=== PATIENT | male | born 1930 | race Hispanic/Latino ===

== ENCOUNTER → 2017-09-06 | Outpatient (CLI) | payer MEDICARE ==
[~2017-09-06] MED LIST: AEC81 PO; AMLO5TAB2 PO; BENA40TA3 PO; CHOL100040 PO; CLOP75TA32 PO; CYAN-35 PO; FERS325 PO; FURO20TA4 PO; FURO20TA6 PO; FURO40TA5 PO; LATA2.5D2 OU; LEVO50 PO; OMEP20CA10 PO; PRAV10TA39 PO; TRAM50TA4 PO; WARF-57 PO; WARF5TAB76 PO; WARF7.5T23 PO
== END | disposition home or self-care (01) ==
LOC: SHCH 08:39
PROVIDERS: ATTEND Internal Medicine Cardiovascular Disease
DX: I35.0 Nonrheumatic aortic (valve) stenosis (principal); R60.9 Edema, unspecified
CPT/HCPCS: 93306

== ENCOUNTER 2017-09-21 09:00 | Inpatient (IN) | payer MEDICARE, OTHER ==
[~2017-09-21] VITALS: Ht 166.4 cm; Wt 58.5 kg
[2017-09-21 09:50] VITALS: BP 128/60
[2017-09-21 10:01] LABS: BASOPHILS % (AUTO) 0.6 % (0.0-5.0); EOSINOPHILS % (AUTO) 3.7 % (0.0-8.0); HEMATOCRIT 24.8 % (42-54); LYMPHOCYTES % (AUTO) 17.2 % (21.0-51.0); MEAN CORPUSCULAR HEMOGLOBIN 31.3 pg (27.0-33.0); MEAN CORPUSCULAR HGB CONC 33.5 g/dL (32.0-36.0); MEAN CORPUSCULAR VOLUME 93.6 fL (79-99); MONOCYTES % (AUTO) 6.8 % (3.0-13.0); NEUTROPHILS % (AUTO) 71.7 % (40.0-77.0); PLATELET COUNT (AUTO) 146 K/uL (130-400); RED BLOOD CELL COUNT(AUTO) 2.65 MIL/uL (4.50-6.20); RED CELL DISTRIBUTION WIDTH 15.7 % (11.0-15.5); WHITE BLOOD COUNT (AUTO) 4.2 K/uL (4.8-10.8)
[2017-09-21 10:03] LABS: APPEARANCE,URINE Clear (CLEAR); BILIRUBIN,URINE Negative (NEGATIVE); COLOR,URINE Yellow (YELLOW); GLUCOSE, URINE (UA) Negative (NEGATIVE); KETONES,URINE Negative (NEGATIVE); LEUKOCYTE ESTERASE ,URINE Small (NEGATIVE); NITRATE,URINE Negative (NEGATIVE); OCCULT BLOOD,URINE Trace (NEGATIVE); PH,URINE 5.5 (5.0-8.0); PROTEIN,URINE POS 1+ (NEGATIVE); UROBILINOGEN,URINE 0.2 mg/dL (0.2-1.0)
[2017-09-21 10:08] LABS: BACTERIA,URINE Rare /HPF (None Seen); RBC,URINE 0-1 /HPF (0-1); SQUAMOUS EPITHELIAL CELL,UR Rare /LPF (0-2); WBC,URINE 0-1 /HPF (0-1)
[2017-09-21 10:08] LABS: CREATININE 2.1 mg/dL (0.5-1.5); POTASSIUM 3.9 mmol/L (3.5-5.1)
[2017-09-21 10:09] LABS: INR 1.81 (0.85-1.15); PARTIAL THROMBOPLASTIN TIME 33.4 SEC (26.3-35.5); PROTHROMBIN TIME 18.8 SEC (9.6-11.6)
[2017-09-21] MEDS ORDERED: FERS325 PO (10:52)
[2017-09-21] MEDS ORDERED: CHOL100040 PO (10:52)
[2017-09-21] MEDS ORDERED: WARF-57 PO (10:52)
[2017-09-21] MEDS ORDERED: LEVO50 PO (10:52)
[2017-09-21] MEDS ORDERED: BENA40TA3 PO (10:52)
[2017-09-21] MEDS ORDERED: FURO40TA5 PO (10:52)
[2017-09-21] MEDS ORDERED: OMEP20CA10 PO (10:52)
[2017-09-24] VITALS (15 sets, daily range): BP systolic 129–178; BP diastolic 50–69
[2017-09-24 06:21] LABS: HEMATOCRIT 25.4 % (42-54)
[2017-09-24 06:33] LABS: INR 1.45 (0.85-1.15); PARTIAL THROMBOPLASTIN TIME 29.7 SEC (26.3-35.5); PROTHROMBIN TIME 15.1 SEC (9.6-11.6)
[2017-09-24] MEDS ORDERED: SODIUM CHLORIDE 0.9% 1000ML 1,000 ML IV SCH ×2 (07:00→13:11)
[2017-09-24] MEDS ORDERED: SODIUM CHLORIDE 0.9% 250 ML IV SCH (07:00)
[2017-09-24] MEDS ORDERED: ASPIRIN 325 MG TABLET ONE (10:29)
[2017-09-24] MEDS ORDERED: ASPIRIN 325MG EC TAB 325 MG TABLET.DR PO SCH (10:30)
[2017-09-24 11:09] LABS: CREATINE KINASE MB 1.7 ng/mL (0.5-3.6); TROPONIN I 0.09 ng/mL (0.00-0.06)
[2017-09-24] MEDS ORDERED: HEPARIN SODIUM 1000UNIT/ML 10ML VIAL ONE (11:57)
[2017-09-24] MEDS ORDERED: NITROGLYCERIN 5 MG/ML 10 ML VIAL IV ONE (11:57)
[2017-09-24] MEDS ORDERED: ISOVUE-370 50ML VIAL IV ONE (11:58)
[2017-09-24] MEDS ORDERED: LIDOCAINE HCL 2% 20ML ONE (11:58)
[2017-09-24] MEDS ORDERED: IOPAMIDOL-370 100 ML VIAL IV ONE (11:58)
[2017-09-24] MEDS ORDERED: MIDAZOLAM HCL 1 MG/ML 2ML VIAL ONE (12:32)
[2017-09-24] MEDS ORDERED: HYDRALAZINE HCL 20 MG/ML VIAL ONE (13:01)
[2017-09-24] MEDS ORDERED: GLUCAGON 1MG KIT 1 MG ML IM PRN (13:15)
[2017-09-24] MEDS ORDERED: NITROGLYCERIN 0.4 MG SL TAB SL PRN (13:15)
[2017-09-24] MEDS ORDERED: DEXTROSE 50%-WATER 50 ML DISP.SYRIN IV PRN (13:15)
[2017-09-25] VITALS (18 sets, daily range): BP systolic 126–164; BP diastolic 45–75
[2017-09-25 04:02] LABS: BASOPHILS % (AUTO) 0.6 % (0.0-5.0); EOSINOPHILS % (AUTO) 1.5 % (0.0-8.0); HEMATOCRIT 24.8 % (42-54); LYMPHOCYTES % (AUTO) 19.1 % (21.0-51.0); MEAN CORPUSCULAR HEMOGLOBIN 30.9 pg (27.0-33.0); MEAN CORPUSCULAR HGB CONC 33.4 g/dL (32.0-36.0); MEAN CORPUSCULAR VOLUME 92.5 fL (79-99); MONOCYTES % (AUTO) 10.7 % (3.0-13.0); NEUTROPHILS % (AUTO) 68.1 % (40.0-77.0); PLATELET COUNT (AUTO) 141 K/uL (130-400); RED BLOOD CELL COUNT(AUTO) 2.68 MIL/uL (4.50-6.20); RED CELL DISTRIBUTION WIDTH 15.3 % (11.0-15.5); WHITE BLOOD COUNT (AUTO) 4.5 K/uL (4.8-10.8)
[2017-09-25 04:11] LABS: INR 1.3 (0.85-1.15); PARTIAL THROMBOPLASTIN TIME 29.7 SEC (26.3-35.5); PROTHROMBIN TIME 13.6 SEC (9.6-11.6)
[2017-09-25 04:19] LABS: CREATININE 2.1 mg/dL (0.5-1.5)
[2017-09-25] MEDS: LEVOTHYROXINE 50 MCG TABLET PO SCH (05:24)
[2017-09-25] MEDS: AMLODIPINE BESYLATE 5 MG TAB PO SCH (08:31)
[2017-09-25] MEDS: FUROSEMIDE 40 MG TABLET PO SCH (08:32)
[2017-09-25] MEDS: LISINOPRIL 40 MG TABLET PO SCH (08:32)
[2017-09-25] MEDS ORDERED: PROPOFOL 1000 MG/100 ML 100 ML IV ONE (12:33)
[2017-09-25] MEDS ORDERED: POTASSIUM CHLORIDE 20 MEQ ERTAB PO SCH (13:00)
[2017-09-25 14:52] LABS: PROTEIN,URINE RANDOM 31.4 mg/dL (0-11.9)
[2017-09-25] MEDS ORDERED: AMLO5TAB2 PO (18:26)
[2017-09-26] VITALS: BP 138/62
[2017-09-26 03:57] VITALS: BP 155/65
[2017-09-26 04:15] LABS: HEMATOCRIT 24.9 % (42-54); MEAN CORPUSCULAR HEMOGLOBIN 32.5 pg (27.0-33.0); MEAN CORPUSCULAR HGB CONC 35.1 g/dL (32.0-36.0); MEAN CORPUSCULAR VOLUME 92.5 fL (79-99); PLATELET COUNT (AUTO) 127 K/uL (130-400); RED BLOOD CELL COUNT(AUTO) 2.69 MIL/uL (4.50-6.20); RED CELL DISTRIBUTION WIDTH 15.5 % (11.0-15.5)
[2017-09-26 04:29] LABS: CREATININE 1.8 mg/dL (0.5-1.5); PHOSPHORUS 3.2 mg/dL (2.5-4.9); POTASSIUM 3.5 mmol/L (3.5-5.1)
[2017-09-26 04:33] LABS: % IRON SATURATION 23.2 % (30-44)
[2017-09-26] MEDS: LEVOTHYROXINE 50 MCG TABLET PO SCH (05:52)
[2017-09-26 07:00] VITALS: BP 127/59
[2017-09-26] MEDS: AMLODIPINE BESYLATE 5 MG TAB PO SCH (08:34)
[2017-09-26] MEDS: FUROSEMIDE 40 MG TABLET PO SCH (08:34)
[2017-09-26] MEDS: LISINOPRIL 40 MG TABLET PO SCH (08:34)
[2017-09-26 08:52] LABS: BASOPHILS % (MANUAL) 1 % (0-2); EOSINOPHILS % (MANUAL) 5 % (1-6); LYMPHOCYTES % (MANUAL) 10 % (22-44); MAN.DIFF COMMENT-IMPRESSION MANUAL DIFFERENTIAL; MONOCYTES % (MANUAL) 10 % (2-9); PLATELET MORPHOLOGY COMMENT SLIGHTLY DECREASED; SEGMENTED NEUTROPHILS % 74 % (40-70)
[2017-09-26 11:00] VITALS: BP 120/57
== END 2017-09-26 13:35 | disposition home or self-care (01) | DRG 287 ==
LOC: DAHIP 09-24 06:00 → EDSTATUS 09-24 09:00 → 2AH 09-24 15:06
PROVIDERS: ADMIT Internal Medicine Cardiovascular Disease; ATTEND Internal Medicine Cardiovascular Disease
PROC: 4A023N8 Measurement of Cardiac Sampling and Pressure, Bilateral, Percutaneous Approach (ICD-10-PCS; 2017-09-24)
PROC: B2111ZZ Fluoroscopy of Multiple Coronary Arteries using Low Osmolar Contrast (ICD-10-PCS; 2017-09-24)
PROC: 0DJ08ZZ Inspection of Upper Intestinal Tract, Via Natural or Artificial Opening Endoscopic (ICD-10-PCS; principal; 2017-09-25)
DX: I25.119 Atherosclerotic heart disease of native coronary artery with unspecified angina pectoris (principal); N17.9 Acute kidney failure, unspecified; I27.20 Pulmonary hypertension, unspecified; I13.0 Hypertensive heart and chronic kidney disease with heart failure and stage 1 through stage 4 chronic kidney disease, or unspecified chronic kidney disease; I50.32 Chronic diastolic (congestive) heart failure; I48.2 Chronic atrial fibrillation; I35.0 Nonrheumatic aortic (valve) stenosis; D64.9 Anemia, unspecified; E78.00 Pure hypercholesterolemia, unspecified; E87.6 Hypokalemia; K21.9 Gastro-esophageal reflux disease without esophagitis; Z87.11 Personal history of peptic ulcer disease; Z83.3 Family history of diabetes mellitus; Z79.01 Long term (current) use of anticoagulants; N18.9 Chronic kidney disease, unspecified; H26.9 Unspecified cataract; K29.50 Unspecified chronic gastritis without bleeding; K29.70 Gastritis, unspecified, without bleeding
CPT/HCPCS: 36415; 71045; 76770; 80048; 81001; 82550; 82553; 82570; 83540; 83550; 83874; 84100; 84156; 84484; 85014; 85018; 85025; 85610; 85730; 93005; 93456; 99152; 99153; C1769; C1894; J0360; J1644; J2250; J2704; J3490; J7030; Q9967

== ENCOUNTER 2017-10-15 08:30 | Inpatient (IN) | payer MEDICARE ==
[~2017-10-15] VITALS: Ht 165.1 cm; Wt 55.0 kg
[~2017-10-15 08:30] MED LIST changes: -AEC81 PO; -BENA40TA3 PO; +BENA40TA9 PO; -CLOP75TA32 PO; -CYAN-35 PO; -FERS325 PO; -FURO20TA4 PO; -FURO20TA6 PO; -LATA2.5D2 OU; -OMEP20CA10 PO; -PRAV10TA39 PO; -TRAM50TA4 PO; -WARF5TAB76 PO; -WARF7.5T23 PO
[2017-10-19 11:20] LABS: BASOPHILS % (AUTO) 0.7 % (0.0-5.0); EOSINOPHILS % (AUTO) 3.8 % (0.0-8.0); HEMATOCRIT 26.2 % (42-54); LYMPHOCYTES % (AUTO) 26.1 % (21.0-51.0); MEAN CORPUSCULAR HEMOGLOBIN 30.5 pg (27.0-33.0); MEAN CORPUSCULAR VOLUME 92.5 fL (79-99); MONOCYTES % (AUTO) 6.5 % (3.0-13.0); NEUTROPHILS % (AUTO) 62.9 % (40.0-77.0); PLATELET COUNT (AUTO) 137 K/uL (130-400); RED BLOOD CELL COUNT(AUTO) 2.83 MIL/uL (4.50-6.20); RED CELL DISTRIBUTION WIDTH 14.3 % (11.0-15.5); WHITE BLOOD COUNT (AUTO) 4.2 K/uL (4.8-10.8)
[2017-10-19] MEDS ORDERED: FERS325 PO (11:29)
[2017-10-19 11:31] LABS: POTASSIUM 4.1 mmol/L (3.5-5.1)
[2017-10-19 11:32] LABS: APPEARANCE,URINE Clear (CLEAR); BILIRUBIN,URINE Negative (NEGATIVE); COLOR,URINE Yellow (YELLOW); GLUCOSE, URINE (UA) Negative (NEGATIVE); KETONES,URINE Negative (NEGATIVE); LEUKOCYTE ESTERASE ,URINE Trace (NEGATIVE); NITRATE,URINE Negative (NEGATIVE); OCCULT BLOOD,URINE Negative (NEGATIVE); PROTEIN,URINE Negative (NEGATIVE); UROBILINOGEN,URINE 0.2 mg/dL (0.2-1.0)
[2017-10-19 12:04] LABS: BACTERIA,URINE Rare /HPF (None Seen); RBC,URINE 0-1 /HPF (0-1); SQUAMOUS EPITHELIAL CELL,UR Rare /HPF (0-2)
[2017-10-19 12:10] VITALS: BP 119/65
[2017-10-19 12:27] LABS: INR 2.39 (0.85-1.15); PARTIAL THROMBOPLASTIN TIME 34.5 SEC (26.3-35.5)
[2017-10-22] VITALS (22 sets, daily range): BP systolic 110–155; BP diastolic 36–77
[2017-10-22] MEDS ORDERED: SODIUM CHLORIDE 0.9% 500ML 500 ML IV SCH (05:00)
[2017-10-22] MEDS ORDERED: SODIUM CHLORIDE 0.9% 1000ML 1,000 ML IV SCH ×2 (06:00→12:18)
[2017-10-22] MEDS ORDERED: ACETYLCYSTEINE 600 MG CAPSULE PO SCH (06:30)
[2017-10-22 06:54] LABS: BASOPHILS % (AUTO) 0.5 % (0.0-5.0); EOSINOPHILS % (AUTO) 4.5 % (0.0-8.0); HEMATOCRIT 24.8 % (42-54); LYMPHOCYTES % (AUTO) 22.2 % (21.0-51.0); MEAN CORPUSCULAR HEMOGLOBIN 31.8 pg (27.0-33.0); MEAN CORPUSCULAR HGB CONC 34.3 g/dL (32.0-36.0); MEAN CORPUSCULAR VOLUME 92.6 fL (79-99); MONOCYTES % (AUTO) 8.9 % (3.0-13.0); NEUTROPHILS % (AUTO) 63.9 % (40.0-77.0); NUCLEATED RED BLOOD CELLS 0.1 % (0.0-0.19); PLATELET COUNT (AUTO) 142 K/uL (130-400); RED BLOOD CELL COUNT(AUTO) 2.67 MIL/uL (4.50-6.20); RED CELL DISTRIBUTION WIDTH 14.2 % (11.0-15.5); WHITE BLOOD COUNT (AUTO) 4.3 K/uL (4.8-10.8)
[2017-10-22 07:04] LABS: INR 1.52 (0.85-1.15); PARTIAL THROMBOPLASTIN TIME 30.7 SEC (26.3-35.5); PROTHROMBIN TIME 15.5 SEC (9.6-11.6)
[2017-10-22 07:07] LABS: CREATININE 2.2 mg/dL (0.5-1.5); POTASSIUM 4.5 mmol/L (3.5-5.1)
[2017-10-22] MEDS ORDERED: HEPARIN SODIUM 1000UNIT/ML 10ML VIAL ONE (10:26)
[2017-10-22] MEDS ORDERED: BIVALIRUDIN 250 MG/VIAL IV ONE (10:26)
[2017-10-22] MEDS ORDERED: LIDOCAINE HCL 2% 20ML ONE (10:27)
[2017-10-22] MEDS ORDERED: MIDAZOLAM HCL 1 MG/ML 2ML VIAL ONE (10:27)
[2017-10-22] MEDS ORDERED: IOPAMIDOL-370 100 ML VIAL IV ONE (10:27)
[2017-10-22] MEDS ORDERED: NITROGLYCERIN 5 MG/ML 10 ML VIAL IV ONE (11:01)
[2017-10-22] MEDS ORDERED: FENTANYL CITRATE PF 50 MCG/1 ML 2ML VIAL ONE (11:12)
[2017-10-22] MEDS ORDERED: ISOVUE-370 50ML VIAL IV ONE (12:01)
[2017-10-22] MEDS ORDERED: ASPIRIN 81 MG EC TAB ONE (12:19)
[2017-10-22] MEDS ORDERED: CLOPIDOGREL BISULFATE 300 MG TAB ONE (12:19)
[2017-10-22] MEDS ORDERED: GLUCAGON 1MG KIT 1 MG ML IM PRN (12:30)
[2017-10-22] MEDS ORDERED: DEXTROSE 50%-WATER 50 ML DISP.SYRIN IV PRN (12:30)
[2017-10-22] MEDS ORDERED: ACETAMINOPHEN-CODEINE 300/30MG TAB PO PRN (12:30)
[2017-10-22] MEDS ORDERED: HYDRALAZINE HCL 20 MG/ML VIAL IV PRN (12:30)
[2017-10-22] MEDS ORDERED: NITROGLYCERIN 0.4 MG SL TAB SL PRN (12:30)
[2017-10-22] MEDS ORDERED: MORPHINE SULFATE 4 MG/1ML SYG ONE (12:37)
[2017-10-22] MEDS ORDERED: NITROGLYCERIN 50 MG/D5% WATER 1 BOT ONE (12:43)
[2017-10-22] MEDS ORDERED: NITROGLYCERIN 50 MG/D5% WATER 250 BOT IV PRN (12:45)
[2017-10-22 15:08] LABS: RETICULOCYTE % (AUTO) 0.6 % (0.42-2.23)
[2017-10-22 15:11] LABS: CREATINE KINASE MB 1.9 ng/mL (0.5-3.6); TROPONIN I 0.05 ng/mL (0.00-0.06)
[2017-10-22] MEDS ORDERED: COMPOUND IV MISC 1 EACH IVSOLN MISC PRN (15:15)
[2017-10-22] MEDS ORDERED: LIDOCAINE HCL-MPF 1% 2ML VIAL IVP PRN (15:15)
[2017-10-22] MEDS ORDERED: POTASSIUM CHLORIDE 20 MEQ ERTAB PO PRN (15:15)
[2017-10-22] MEDS ORDERED: POTASSIUM CHLORIDE 20MEQ/100ML 100 ML IV PRN (15:15)
[2017-10-22] MEDS ORDERED: POTASSIUM CHLORIDE 10% ELIXIR 20 MEQ/15 ML UDCUP PO PRN (15:15)
[2017-10-22 15:27] LABS: % IRON SATURATION 23.7 % (30-44)
[2017-10-22] MEDS: INSULIN HUMULIN R 100 UNIT/ML 3ML SQ SCH ×2 (16:30→20:40)
[2017-10-22] MEDS: IRON SUCROSE COMPLEX 100 MG in SODIUM CHLORIDE 0.9% 50 ML IV SCH (17:10)
[2017-10-23] VITALS (18 sets, daily range): BP systolic 90–136; BP diastolic 36–65
[2017-10-23 04:00] LABS: HEMATOCRIT 22.5 % (42-54); MEAN CORPUSCULAR HEMOGLOBIN 30.1 pg (27.0-33.0); MEAN CORPUSCULAR HGB CONC 32.3 g/dL (32.0-36.0); MEAN CORPUSCULAR VOLUME 92.9 fL (79-99); PLATELET COUNT (AUTO) 128 K/uL (130-400); RED BLOOD CELL COUNT(AUTO) 2.42 MIL/uL (4.50-6.20); RED CELL DISTRIBUTION WIDTH 14.5 % (11.0-15.5); WHITE BLOOD COUNT (AUTO) 4.4 K/uL (4.8-10.8)
[2017-10-23 04:40] LABS: CREATINE KINASE MB 3.9 ng/mL (0.5-3.6); CREATININE 1.9 mg/dL (0.5-1.5); POTASSIUM 3.8 mmol/L (3.5-5.1)
[2017-10-23 04:49] LABS: TROPONIN I 0.74 ng/mL (0.00-0.06)
[2017-10-23] MEDS: INSULIN HUMULIN R 100 UNIT/ML 3ML SQ SCH ×4 (06:05→20:31)
[2017-10-23] MEDS: LEVOTHYROXINE 50 MCG TABLET PO SCH (06:51)
[2017-10-23] MEDS: AMLODIPINE BESYLATE 5 MG TAB PO SCH (09:00)
[2017-10-23] MEDS: BENAZEPRIL HCL 10 MG TABLET PO SCH (09:00)
[2017-10-23] MEDS: IRON SUCROSE COMPLEX 100 MG in SODIUM CHLORIDE 0.9% 50 ML IV SCH (09:26)
[2017-10-23 09:27] LABS: HEMATOCRIT 23.1 % (42-54)
[2017-10-23] MEDS: FAMOTIDINE 20MG TAB 20 MG TAB PO SCH (09:27)
[2017-10-23] MEDS: ASPIRIN 81MG TAB.CHEW PO SCH (09:27)
[2017-10-23] MEDS: CLOPIDOGREL BISULFATE 75 MG TAB PO SCH (09:27)
[2017-10-23] MEDS: FUROSEMIDE 10 MG/ML 2ML VIAL IV SCH ×3 (09:27→23:11)
[2017-10-23 11:39] LABS: CREATINE KINASE MB 3.6 ng/mL (0.5-3.6)
[2017-10-23 11:50] LABS: TROPONIN I 0.9 ng/mL (0.00-0.06)
[2017-10-23] MEDS: ***HM***(Cholecalciferol (Vitamin D3) (Vitamin D3) 1,000 UNIT) PO SCH (12:00)
[2017-10-23] MEDS: FERROUS SULFATE 325 MG TABLET.DR PO SCH (12:19)
[2017-10-24 03:08] VITALS: BP 134/65
[2017-10-24 04:17] LABS: CREATININE 1.9 mg/dL (0.5-1.5); POTASSIUM 3.9 mmol/L (3.5-5.1)
[2017-10-24] MEDS: LEVOTHYROXINE 50 MCG TABLET PO SCH (05:32)
[2017-10-24] MEDS: INSULIN HUMULIN R 100 UNIT/ML 3ML SQ SCH ×2 (05:40→11:30)
[2017-10-24 07:00] VITALS: BP 129/65
[2017-10-24] MEDS: IRON SUCROSE COMPLEX 100 MG in SODIUM CHLORIDE 0.9% 50 ML IV SCH (09:00)
[2017-10-24 11:00] VITALS: BP 127/55
[2017-10-24] MEDS: CLOPIDOGREL BISULFATE 75 MG TAB PO SCH (11:03)
[2017-10-24] MEDS: AMLODIPINE BESYLATE 5 MG TAB PO SCH (11:03)
[2017-10-24] MEDS: ASPIRIN 81MG TAB.CHEW PO SCH (11:03)
[2017-10-24] MEDS: FAMOTIDINE 20MG TAB 20 MG TAB PO SCH (11:03)
[2017-10-24] MEDS: BENAZEPRIL HCL 10 MG TABLET PO SCH (11:04)
[2017-10-24] MEDS: FUROSEMIDE 10 MG/ML 2ML VIAL IV SCH (11:05)
[2017-10-24] MEDS: ***HM***(Cholecalciferol (Vitamin D3) (Vitamin D3) 1,000 UNIT) PO SCH (12:00)
[2017-10-24] MEDS: FERROUS SULFATE 325 MG TABLET.DR PO SCH (12:04)
[2017-10-24] MEDS ORDERED: CLOP75TA32 PO (14:54)
[2017-10-24] MEDS ORDERED: AEC81 PO (14:54)
[2017-10-24] MEDS ORDERED: WARFARIN SODIUM 5 MG TAB PO SCH (16:00)
[2017-10-25] MEDS ORDERED: FUROSEMIDE 40 MG TABLET PO SCH (09:00)
== END 2017-10-24 16:30 | disposition home or self-care (01) | DRG 246 ==
LOC: EDSTATUS 10-19 10:00 → DAHIP 10-22 05:54 → 2BH 10-22 13:39 → 2CH 10-23 15:19
PROVIDERS: ADMIT Internal Medicine; ATTEND Internal Medicine
PROC: 027135Z Dilation of Coronary Artery, Two Arteries with Two Drug-eluting Intraluminal Devices, Percutaneous Approach (ICD-10-PCS; principal; 2017-10-22)
DX: I25.110 Atherosclerotic heart disease of native coronary artery with unstable angina pectoris (principal); I50.33 Acute on chronic diastolic (congestive) heart failure; D68.59 Other primary thrombophilia; D69.6 Thrombocytopenia, unspecified; I27.20 Pulmonary hypertension, unspecified; N18.4 Chronic kidney disease, stage 4 (severe); I49.5 Sick sinus syndrome; I48.2 Chronic atrial fibrillation; I13.0 Hypertensive heart and chronic kidney disease with heart failure and stage 1 through stage 4 chronic kidney disease, or unspecified chronic kidney disease; I35.0 Nonrheumatic aortic (valve) stenosis; D63.8 Anemia in other chronic diseases classified elsewhere; E03.9 Hypothyroidism, unspecified; Z79.01 Long term (current) use of anticoagulants; Z79.02 Long term (current) use of antithrombotics/antiplatelets; Z79.82 Long term (current) use of aspirin; Z83.3 Family history of diabetes mellitus
CPT/HCPCS: 36415; 71045; 80048; 81001; 82550; 82553; 82607; 82728; 82746; 82948; 83874; 83880; 84484; 85014; 85018; 85025; 85027; 85610; 85730; 93005; 93306; 93454; A4606; C1725; C1769; C1887; C1894; C9600; J0583; J1644; J1756; J1940; J2250; J2270; J3010; J3490; J7030; Q9967

== ENCOUNTER → 2017-10-17 | Outpatient (CLI) | payer MEDICARE ==
[~2017-10-17] MED LIST changes: +AEC81 PO; +CLOP75TA32 PO; +CYAN-35 PO; +FERS325 PO; +FURO20TA4 PO; +FURO20TA6 PO; +LATA2.5D2 OU; +OMEP20CA10 PO; +PRAV10TA39 PO; +TRAM50TA4 PO; +WARF5TAB76 PO; +WARF7.5T23 PO
== END | disposition home or self-care (01) ==
LOC: SHCH 12:30
PROVIDERS: ATTEND Internal Medicine Cardiovascular Disease
DX: I87.2 Venous insufficiency (chronic) (peripheral) (principal)
CPT/HCPCS: 93970

== ENCOUNTER 2017-11-19 13:30 | Inpatient (IN) | payer MEDICARE ==
[~2017-11-19] VITALS: Ht 167.6 cm; Wt 62.0 kg
[2017-11-19 08:45] VITALS: BP 122/47
[2017-11-19 08:53] LABS: BASOPHILS % (AUTO) 0.8 % (0.0-5.0); EOSINOPHILS % (AUTO) 4.7 % (0.0-8.0); HEMATOCRIT 26.9 % (42-54); LYMPHOCYTES % (AUTO) 24.5 % (21.0-51.0); MEAN CORPUSCULAR HEMOGLOBIN 31.2 pg (27.0-33.0); MEAN CORPUSCULAR HGB CONC 33.4 g/dL (32.0-36.0); MEAN CORPUSCULAR VOLUME 93.5 fL (79-99); MONOCYTES % (AUTO) 8.5 % (3.0-13.0); NEUTROPHILS % (AUTO) 61.5 % (40.0-77.0); PLATELET COUNT (AUTO) 147 K/uL (130-400); RED BLOOD CELL COUNT(AUTO) 2.88 MIL/uL (4.50-6.20); RED CELL DISTRIBUTION WIDTH 14.5 % (11.0-15.5); WHITE BLOOD COUNT (AUTO) 4.2 K/uL (4.8-10.8)
[2017-11-19 09:02] LABS: INR 1.03 (0.85-1.15); PARTIAL THROMBOPLASTIN TIME 26.4 SEC (26.3-35.5); PROTHROMBIN TIME 10.8 SEC (9.6-11.6)
[2017-11-19 09:06] LABS: ALBUMIN 3.9 g/dL (3.5-5.0); BILIRUBIN,TOTAL 0.8 mg/dL (0.2-1.0); POTASSIUM 4.8 mmol/L (3.5-5.1); TOTAL PROTEIN, SERUM 7.8 g/dL (6.0-8.3)
[2017-11-19 09:15] LABS: HEMOGLOBIN A1C 5.4 % (4.0-6.0)
[~2017-11-19 13:30] MED LIST changes: -CYAN-35 PO; -FURO20TA4 PO; -FURO20TA6 PO; -LATA2.5D2 OU; -OMEP20CA10 PO; -PRAV10TA39 PO; -TRAM50TA4 PO; -WARF-57 PO; -WARF5TAB76 PO; -WARF7.5T23 PO
[2017-11-20] MEDS: CEFUROXIME SODIUM 1.5 GM VIAL IVP SCH (09:45)
[2017-11-21] VITALS (30 sets, daily range): BP systolic 51–168; BP diastolic 27–85
[2017-11-21] MEDS ORDERED: SODIUM CHLORIDE 0.9% 1000ML 1,000 ML IV ONE (07:44)
[2017-11-21] MEDS ORDERED: NITROGLYCERIN 50 MG/D5% WATER 1 BOT ONE (07:51)
[2017-11-21] MEDS ORDERED: EPINEPHRINE 1 MG/ML 30ML VIAL IJ ONE (07:51)
[2017-11-21] MEDS ORDERED: BACITRACIN 50,000 UNIT VIAL ONE (07:57)
[2017-11-21] MEDS ORDERED: OCTYL 2-CYANOACRYLATE 1 EACH TP ONE (07:57)
[2017-11-21] MEDS ORDERED: THROMBIN-JMI 5000 UNIT/VIAL TP ONE (09:06)
[2017-11-21] MEDS ORDERED: DELNIDO FORMULA 2 BAG IV ONE (09:07)
[2017-11-21] MEDS ORDERED: NOREPINEPHRINE BITARTRATE 1 MG/1 ML ML IV ONE ×2 (09:14→09:22)
[2017-11-21] MEDS ORDERED: GLYCOPYRROLATE 0.2 MG/ML 5 ML VIAL ONE (09:22)
[2017-11-21] MEDS ORDERED: ROCURONIUM BROMIDE 10MG/1ML 5ML VL ONE (09:22)
[2017-11-21] MEDS ORDERED: ESMOLOL HCL 10 MG/ML 10 ML VIAL ONE (09:22)
[2017-11-21] MEDS ORDERED: HEPARIN SODIUM 1000UNIT/ML 10ML VIAL ONE (09:22)
[2017-11-21] MEDS ORDERED: MILRINONE-D5W 20 MG/100 ML 100 ML IV ONE (09:22)
[2017-11-21] MEDS ORDERED: PROPOFOL 10 MG/ML 20ML VIAL IV ONE (09:22)
[2017-11-21] MEDS ORDERED: NEOSTIGMINE 5MG/5ML SYR IV ONE (09:22)
[2017-11-21] MEDS ORDERED: EPINEPHRINE 1 MG/ML AMPULE ONE (09:22)
[2017-11-21] MEDS ORDERED: PROTAMINE SULFATE 10 MG/ML 25ML VIAL IV ONE (09:22)
[2017-11-21] MEDS ORDERED: LIDOCAINE PF 2% 5ML ABBOJECT ONE (09:22)
[2017-11-21] MEDS ORDERED: AMINOCAPROIC ACID 250 MG/ML 20 ML VIAL IV ONE (09:22)
[2017-11-21] MEDS ORDERED: MIDAZOLAM HCL 1 MG/ML 5ML VIAL ONE (09:23)
[2017-11-21] MEDS: CEFUROXIME SODIUM 1.5 GM VIAL IVP SCH ×2 (10:00→19:29)
[2017-11-21] MEDS ORDERED: FENTANYL CITRATE PF 50 MCG/1 ML 5ML AMP IV ONE ×3 (10:01→10:02)
[2017-11-21 10:19] LABS: ABG BASE EXCESS -4.6 mmol/L (-2.0-3.0); ABG HCO3 20.2 mmol/L (21.0-28.0); ABG OXYGEN SATURATION 99.2 % (95.0-99.0); ABG PCO2 36 mmHg (35-48)
[2017-11-21 11:06] LABS: ABG HCO3 17.9 mmol/L (21.0-28.0); ABG OXYGEN SATURATION 99.1 % (95.0-99.0); ABG PCO2 30 mmHg (35-48)
[2017-11-21 11:23] LABS: ABG BASE EXCESS -1.9 mmol/L (-2.0-3.0); ABG OXYGEN SATURATION 98.9 % (95.0-99.0); ABG PCO2 34 mmHg (35-48)
[2017-11-21] MEDS ORDERED: SODIUM CHLORIDE 0.9% 500ML 500 ML IV SCH (11:24)
[2017-11-21] MEDS ORDERED: CALCIUM GLUCONATE 1 GM in SODIUM CHLORIDE 0.9% 50 ML IV PRN (11:30)
[2017-11-21] MEDS ORDERED: ALBUMIN (HUMAN) 5% 250 ML IV PRN (11:30)
[2017-11-21] MEDS ORDERED: SODIUM CHLORIDE 0.9% 1000ML 1,000 ML IV SCH (11:30)
[2017-11-21] MEDS ORDERED: AMINOCAPROIC ACID 15,000 MG in SODIUM CHLORIDE 0.9% 250 ML IV SCH (11:30)
[2017-11-21] MEDS ORDERED: MORPHINE SULFATE 4 MG/1ML SYG IV PRN (11:30)
[2017-11-21] MEDS ORDERED: SODIUM CHLORIDE 0.9% 250 ML IV PRN (11:30)
[2017-11-21] MEDS ORDERED: ACETAMINOPHEN 325 MG TAB PO PRN (11:30)
[2017-11-21] MEDS ORDERED: NOREPINEPHRINE 4MG/NS 250ML 250 ML IV PRN (11:30)
[2017-11-21] MEDS ORDERED: EPINEPHRINE 2 MG in SODIUM CHLORIDE 0.9% 250 ML IV PRN (11:30)
[2017-11-21] MEDS ORDERED: SODIUM CHLORIDE 0.9% 10 ML VIAL IVP PRN (11:30)
[2017-11-21] MEDS ORDERED: ACETAMINOPHEN 650 MG SUPPOSITORY RC PRN (11:30)
[2017-11-21] MEDS ORDERED: HYDROCODONE/ACETAMINOPHEN 5/325 MG TAB PO PRN ×2 (11:30)
[2017-11-21] MEDS ORDERED: ONDANSETRON HCL 4 MG/2 ML VIAL IV PRN (11:30)
[2017-11-21] MEDS ORDERED: PROPOFOL 1000 MG/100 ML 100 ML IV PRN (11:30)
[2017-11-21] MEDS ORDERED: SODIUM BICARB 8.4% 50ML SYRINGE IV PRN (11:30)
[2017-11-21] MEDS ORDERED: GLUCAGON 1MG KIT 1 MG ML IM PRN (11:30)
[2017-11-21] MEDS ORDERED: INSULIN REGULAR, HUMAN 3ML 100 UNIT in SODIUM CHLORIDE 0.9% 99 ML IV SCH ×2 (11:30)
[2017-11-21] MEDS ORDERED: POTASSIUM CHLORIDE 20MEQ/100ML 100 ML IV PRN (11:30)
[2017-11-21] MEDS ORDERED: NICARDIPINE HCL 100 MG in SODIUM CHLORIDE 0.9% 100 ML IV PRN (11:30)
[2017-11-21] MEDS ORDERED: MAGNESIUM 2GM PREMIX 50ML 50 ML IV PRN (11:30)
[2017-11-21] MEDS ORDERED: POTASSIUM PHOS 15 mMOL+NS250ML 250 ML IV PRN (11:30)
[2017-11-21] MEDS ORDERED: NITROGLYCERIN 50 MG/D5% WATER 250 BOT IV SCH (11:30)
[2017-11-21] MEDS ORDERED: DEXTROSE 50%-WATER 50 ML DISP.SYRIN IV PRN (11:30)
[2017-11-21] MEDS ORDERED: MORPHINE SULFATE 2 MG/ML 1ML SYG IV PRN (11:30)
[2017-11-21 11:54] LABS: ABG BASE EXCESS -3.7 mmol/L (-2.0-3.0); ABG HCO3 20.6 mmol/L (21.0-28.0); ABG OXYGEN SATURATION 98.8 % (95.0-99.0); ABG PCO2 34 mmHg (35-48)
[2017-11-21] MEDS ORDERED: MANNITOL 25% 50ML VIAL IV ONE (12:00)
[2017-11-21] MEDS ORDERED: ALBUMIN (HUMAN) 25% 50 ML IV ONE (12:00)
[2017-11-21] MEDS ORDERED: SODIUM BICARB 8.4% 50ML SYRINGE IVP ONE (12:00)
[2017-11-21] MEDS ORDERED: CALCIUM CHLORIDE 100 MG/ML 10 ML SYG IVP ONE (12:00)
[2017-11-21] MEDS ORDERED: HEPARIN SODIUM 1000UNIT/ML 10ML VIAL IV ONE (12:00)
[2017-11-21 12:31] LABS: ABG BASE EXCESS -4.8 mmol/L (-2.0-3.0); ABG HCO3 20.2 mmol/L (21.0-28.0); ABG OXYGEN SATURATION 98.8 % (95.0-99.0); ABG PCO2 37 mmHg (35-48)
[2017-11-21 12:44] LABS: HEMATOCRIT 27.1 % (42-54); MEAN CORPUSCULAR HEMOGLOBIN 31.8 pg (27.0-33.0); MEAN CORPUSCULAR HGB CONC 34.4 g/dL (32.0-36.0); MEAN CORPUSCULAR VOLUME 92.3 fL (79-99); RED BLOOD CELL COUNT(AUTO) 2.93 MIL/uL (4.50-6.20); RED CELL DISTRIBUTION WIDTH 14.1 % (11.0-15.5); WHITE BLOOD COUNT (AUTO) 15.9 K/uL (4.8-10.8)
[2017-11-21 12:52] LABS: PLATELET COUNT (AUTO) 87 K/uL (130-400)
[2017-11-21] MEDS ORDERED: ONDANSETRON HCL MDV 20ML 2 MG/ML VIAL IV PRN (12:55)
[2017-11-21 12:57] LABS: CREATININE 1.5 mg/dL (0.5-1.5); MAGNESIUM 2.6 mg/dL (1.80-2.40); PHOSPHORUS 3.5 mg/dL (2.5-4.9)
[2017-11-21] MEDS ORDERED: ROPIVACAINE 0.2% 2MG/ML 100ML VIAL IJ ONE (13:00)
[2017-11-21] MEDS: AMBU PUMP 1 EACH EACH MISC SCH (13:00)
[2017-11-21] MEDS ORDERED: ALBUMIN (HUMAN) 5% 250 ML IV ONE (13:25)
[2017-11-21 18:49] LABS: ABG BASE EXCESS -10.4 mmol/L (-2.0-3.0); ABG HCO3 17.3 mmol/L (21.0-28.0); ABG OXYGEN SATURATION 98.8 % (95.0-99.0); ABG PCO2 45 mmHg (35-48)
[2017-11-21] MEDS ORDERED: SODIUM BICARB 50MEQ 50ML VIAL ONE ×2 (18:49→19:06)
[2017-11-21] MEDS ORDERED: CEFUROXIME 1.5GM+NS 100ML 100 ML IV SCH (19:30)
[2017-11-21 20:06] LABS: ABG BASE EXCESS 0.6 mmol/L (-2.0-3.0); ABG HCO3 26.3 mmol/L (21.0-28.0); ABG OXYGEN SATURATION 98.3 % (95.0-99.0); ABG PCO2 48 mmHg (35-48)
[2017-11-21 21:13] LABS: ABG BASE EXCESS -1.1 mmol/L (-2.0-3.0); ABG HCO3 24.1 mmol/L (21.0-28.0); ABG OXYGEN SATURATION 98.3 % (95.0-99.0); ABG PCO2 42 mmHg (35-48)
[2017-11-21 22:40] LABS: ABG BASE EXCESS 1.2 mmol/L (-2.0-3.0); ABG OXYGEN SATURATION 97.7 % (95.0-99.0); ABG PCO2 42 mmHg (35-48)
[2017-11-22] VITALS (26 sets, daily range): BP systolic 94–158; BP diastolic 45–85
[2017-11-22 05:38] LABS: HEMATOCRIT 25.3 % (42-54); MEAN CORPUSCULAR HEMOGLOBIN 31.1 pg (27.0-33.0); MEAN CORPUSCULAR HGB CONC 33.7 g/dL (32.0-36.0); MEAN CORPUSCULAR VOLUME 92.4 fL (79-99); PLATELET COUNT (AUTO) 61 K/uL (130-400); RED BLOOD CELL COUNT(AUTO) 2.74 MIL/uL (4.50-6.20); RED CELL DISTRIBUTION WIDTH 14.6 % (11.0-15.5); WHITE BLOOD COUNT (AUTO) 10.4 K/uL (4.8-10.8)
[2017-11-22 05:50] LABS: CREATININE 1.8 mg/dL (0.5-1.5); MAGNESIUM 2.3 mg/dL (1.80-2.40); POTASSIUM 4.1 mmol/L (3.5-5.1)
[2017-11-22] MEDS: CEFUROXIME SODIUM 1.5 GM VIAL IVP SCH ×2 (06:11→20:40)
[2017-11-22] MEDS: CLOPIDOGREL BISULFATE 75 MG TAB PO SCH (08:53)
[2017-11-22] MEDS: ASPIRIN 81MG TAB.CHEW PO SCH (08:54)
[2017-11-22] MEDS: AMLODIPINE BESYLATE 5 MG TAB PO SCH (08:54)
[2017-11-22] MEDS: LEVOTHYROXINE 50 MCG TABLET PO SCH ×2 (08:55→09:03)
[2017-11-22] MEDS: PANTOPRAZOLE 40 MG/VIAL IV SCH (08:58)
[2017-11-22] MEDS ORDERED: LEVOTHYROXINE 50 MCG TABLET PO SCH (09:00)
[2017-11-22] MEDS ORDERED: WARF5TAB76 PO (09:11)
[2017-11-22] MEDS ORDERED: WARF7.5T23 PO (09:11)
[2017-11-22] MEDS: FUROSEMIDE 40 MG TABLET PO SCH (09:15)
[2017-11-22] MEDS: AMBU PUMP 1 EACH EACH MISC SCH (12:00)
[2017-11-22 12:51] LABS: LYMPHOCYTES % (MANUAL) 3 % (22-44); MAN.DIFF COMMENT-IMPRESSION MANUAL DIFFERENTIAL; MONOCYTES % (MANUAL) 2 % (2-9); SEGMENTED NEUTROPHILS % 95 % (40-70)
[2017-11-22 12:52] LABS: PLATELET MORPHOLOGY COMMENT DECREASED
[2017-11-23] VITALS (14 sets, daily range): BP systolic 106–150; BP diastolic 48–72
[2017-11-23 03:53] LABS: HEMATOCRIT 22.3 % (42-54); MEAN CORPUSCULAR HEMOGLOBIN 32.4 pg (27.0-33.0); MEAN CORPUSCULAR HGB CONC 34.9 g/dL (32.0-36.0); MEAN CORPUSCULAR VOLUME 92.9 fL (79-99); PLATELET COUNT (AUTO) 41 K/uL (130-400); RED CELL DISTRIBUTION WIDTH 14.4 % (11.0-15.5); WHITE BLOOD COUNT (AUTO) 13.4 K/uL (4.8-10.8)
[2017-11-23 04:04] LABS: CREATININE 2.3 mg/dL (0.5-1.5); POTASSIUM 4.2 mmol/L (3.5-5.1)
[2017-11-23] MEDS: CLOPIDOGREL BISULFATE 75 MG TAB PO SCH (08:34)
[2017-11-23] MEDS: AMLODIPINE BESYLATE 5 MG TAB PO SCH (08:34)
[2017-11-23] MEDS: FUROSEMIDE 40 MG TABLET PO SCH (08:35)
[2017-11-23] MEDS: ASPIRIN 81MG TAB.CHEW PO SCH (08:35)
[2017-11-23] MEDS: PANTOPRAZOLE 40 MG/VIAL IV SCH (09:00)
[2017-11-23] MEDS ORDERED: LORAZEPAM 0.5 MG TABLET PO PRN (09:30)
[2017-11-23] MEDS: AMBU PUMP 1 EACH EACH MISC SCH (12:00)
[2017-11-23] MEDS: FONDAPARINUX SODIUM 2.5 MG/0.5 ML SQ SCH (13:00)
[2017-11-23] MEDS ORDERED: LORAZEPAM 1 MG TABLET ONE (21:27)
[2017-11-24] VITALS (11 sets, daily range): BP systolic 114–138; BP diastolic 58–75
[2017-11-24 04:22] LABS: HEMATOCRIT 22.5 % (42-54); MEAN CORPUSCULAR HGB CONC 33.1 g/dL (32.0-36.0); MEAN CORPUSCULAR VOLUME 93.6 fL (79-99); PLATELET COUNT (AUTO) 31 K/uL (130-400); RED BLOOD CELL COUNT(AUTO) 2.41 MIL/uL (4.50-6.20); RED CELL DISTRIBUTION WIDTH 14.5 % (11.0-15.5); WHITE BLOOD COUNT (AUTO) 12.9 K/uL (4.8-10.8)
[2017-11-24 04:40] LABS: CREATININE 2.8 mg/dL (0.5-1.5); POTASSIUM 4.5 mmol/L (3.5-5.1)
[2017-11-24] MEDS: LEVOTHYROXINE 50 MCG TABLET PO SCH (06:42)
[2017-11-24] MEDS: ASPIRIN 81MG TAB.CHEW PO SCH (09:00)
[2017-11-24] MEDS: PANTOPRAZOLE 40 MG/VIAL IV SCH (09:29)
[2017-11-24] MEDS: FONDAPARINUX SODIUM 2.5 MG/0.5 ML SQ SCH (09:29)
[2017-11-24] MEDS: FUROSEMIDE 40 MG TABLET PO SCH (09:43)
[2017-11-24] MEDS: AMBU PUMP 1 EACH EACH MISC SCH (12:00)
[2017-11-25 03:41] VITALS: BP 128/65
[2017-11-25 04:32] LABS: MEAN CORPUSCULAR VOLUME 94.2 fL (79-99); NUCLEATED RED BLOOD CELLS 0.1 % (0.0-0.19); PLATELET COUNT (AUTO) 32 K/uL (130-400); RED BLOOD CELL COUNT(AUTO) 2.21 MIL/uL (4.50-6.20)
[2017-11-25 04:35] LABS: HEMATOCRIT 20.9 % (42-54)
[2017-11-25 04:40] LABS: BAND NEUTROPHILS % (MANUAL) 3 % (0-2); LYMPHOCYTES % (MANUAL) 12 % (22-44); MAN.DIFF COMMENT-IMPRESSION MANUAL DIFFERENTIAL; MONOCYTES % (MANUAL) 10 % (2-9); SEGMENTED NEUTROPHILS % 75 % (40-70)
[2017-11-25 04:41] LABS: PLATELET MORPHOLOGY COMMENT MARKED DECREASED
[2017-11-25 04:46] LABS: CREATININE 2.7 mg/dL (0.5-1.5); MAGNESIUM 2.5 mg/dL (1.80-2.40); PHOSPHORUS 5.3 mg/dL (2.5-4.9); POTASSIUM 3.9 mmol/L (3.5-5.1)
[2017-11-25] MEDS: LEVOTHYROXINE 50 MCG TABLET PO SCH (06:55)
[2017-11-25 08:08] VITALS: BP 115/65
[2017-11-25] MEDS: FUROSEMIDE 40 MG TABLET PO SCH (08:41)
[2017-11-25] MEDS: FONDAPARINUX SODIUM 2.5 MG/0.5 ML SQ SCH (08:41)
[2017-11-25] MEDS: ASPIRIN 81MG TAB.CHEW PO SCH (08:41)
[2017-11-25] MEDS: PANTOPRAZOLE SODIUM 40 MG TABLET.DR PO SCH (08:41)
[2017-11-25] MEDS: AMBU PUMP 1 EACH EACH MISC SCH (12:00)
[2017-11-25 12:01] VITALS: BP 131/67
[2017-11-25 16:00] VITALS: BP 100/55
[2017-11-25 19:50] VITALS: BP 132/73
[2017-11-25 23:29] VITALS: BP 130/72
[2017-11-26 03:55] VITALS: BP 164/79
[2017-11-26] MEDS: LEVOTHYROXINE 50 MCG TABLET PO SCH (07:07)
[2017-11-26] MEDS: PANTOPRAZOLE SODIUM 40 MG TABLET.DR PO SCH (07:07)
[2017-11-26 07:47] VITALS: BP 139/79
[2017-11-26 08:12] LABS: BASOPHILS % (AUTO) 0.1 % (0.0-5.0); EOSINOPHILS % (AUTO) 0.2 % (0.0-8.0); HEMATOCRIT 23.8 % (42-54); LYMPHOCYTES % (AUTO) 6.9 % (21.0-51.0); MEAN CORPUSCULAR HGB CONC 33.4 g/dL (32.0-36.0); MEAN CORPUSCULAR VOLUME 89.7 fL (79-99); MONOCYTES % (AUTO) 9.2 % (3.0-13.0); NEUTROPHILS % (AUTO) 83.6 % (40.0-77.0); PLATELET COUNT (AUTO) 91 K/uL (130-400); RED BLOOD CELL COUNT(AUTO) 2.65 MIL/uL (4.50-6.20); RED CELL DISTRIBUTION WIDTH 17.2 % (11.0-15.5); WHITE BLOOD COUNT (AUTO) 8.3 K/uL (4.8-10.8)
[2017-11-26 08:25] LABS: ALBUMIN 3.3 g/dL (3.5-5.0); BILIRUBIN,TOTAL 2.2 mg/dL (0.2-1.0); CREATININE 2.3 mg/dL (0.5-1.5); POTASSIUM 3.8 mmol/L (3.5-5.1); TOTAL PROTEIN, SERUM 6.7 g/dL (6.0-8.3)
[2017-11-26 11:24] VITALS: BP 134/77
[2017-11-26] MEDS ORDERED: FUROSEMIDE 20 MG TABLET PO SCH ×2 (12:30→17:00)
[2017-11-26] MEDS: ASPIRIN 81MG TAB.CHEW PO SCH (12:31)
[2017-11-26] MEDS ORDERED: TRAMADOL HCL 50 MG TABLET PO PRN ×2 (13:15)
[2017-11-26 16:00] VITALS: BP 134/72
[2017-11-26] MEDS ORDERED: FURO20TA6 PO (17:44)
[2017-11-26] MEDS ORDERED: TRAM50TA4 PO (17:44)
[2017-11-26] MEDS ORDERED: WARFARIN SODIUM 7.5 MG TAB PO ONE (19:30)
[2017-11-27] MEDS ORDERED: CLOPIDOGREL BISULFATE 75 MG TAB PO SCH (09:00)
[2017-11-27] MEDS ORDERED: WARFARIN SODIUM 5 MG TAB PO SCH (16:00)
[2017-11-28] MEDS ORDERED: WARFARIN SODIUM 7.5 MG TAB PO SCH (16:00)
[2017-11-30] MEDS ORDERED: WARFARIN SODIUM 5 MG TAB PO SCH (16:00)
== END 2017-11-26 20:00 | disposition home or self-care (01) | DRG 220 ==
LOC: EDSTATUS 13:30 → DAHIP 11-21 07:18 → 2CV 11-21 11:21 → 2BH 11-22 12:52
PROVIDERS: ADMIT Thoracic Surgery (Cardiothoracic Vascular Surgery); ATTEND Thoracic Surgery (Cardiothoracic Vascular Surgery)
PROC: 5A1935Z Respiratory Ventilation, Less than 24 Consecutive Hours (ICD-10-PCS; 2017-11-21)
PROC: 30233R1 Transfusion of Nonautologous Platelets into Peripheral Vein, Percutaneous Approach (ICD-10-PCS; 2017-11-21)
PROC: 30233N1 Transfusion of Nonautologous Red Blood Cells into Peripheral Vein, Percutaneous Approach (ICD-10-PCS; 2017-11-21)
PROC: 0BH17EZ Insertion of Endotracheal Airway into Trachea, Via Natural or Artificial Opening (ICD-10-PCS; 2017-11-21)
PROC: 02RF0JZ Replacement of Aortic Valve with Synthetic Substitute, Open Approach (ICD-10-PCS; principal; 2017-11-21 09:00)
PROC: 5A1221Z Performance of Cardiac Output, Continuous (ICD-10-PCS; 2017-11-21 09:00)
DX: I35.2 Nonrheumatic aortic (valve) stenosis with insufficiency (principal); I13.0 Hypertensive heart and chronic kidney disease with heart failure and stage 1 through stage 4 chronic kidney disease, or unspecified chronic kidney disease; E87.0 Hyperosmolality and hypernatremia; E11.22 Type 2 diabetes mellitus with diabetic chronic kidney disease; D69.6 Thrombocytopenia, unspecified; N18.4 Chronic kidney disease, stage 4 (severe); J44.9 Chronic obstructive pulmonary disease, unspecified; D72.0 Genetic anomalies of leukocytes; I27.20 Pulmonary hypertension, unspecified; I48.0 Paroxysmal atrial fibrillation; I50.32 Chronic diastolic (congestive) heart failure; D62 Acute posthemorrhagic anemia; I77.819 Aortic ectasia, unspecified site; I25.10 Atherosclerotic heart disease of native coronary artery without angina pectoris; E03.9 Hypothyroidism, unspecified; I35.1 Nonrheumatic aortic (valve) insufficiency; I48.2 Chronic atrial fibrillation; I49.5 Sick sinus syndrome; Z87.891 Personal history of nicotine dependence; Z79.01 Long term (current) use of anticoagulants; Z79.02 Long term (current) use of antithrombotics/antiplatelets; Z79.82 Long term (current) use of aspirin; Z79.899 Other long term (current) drug therapy; Z95.5 Presence of coronary angioplasty implant and graft; Z83.3 Family history of diabetes mellitus; Z82.49 Family history of ischemic heart disease and other diseases of the circulatory system
CPT/HCPCS: 36415; 36430; 71045; 71046; 76998; 80048; 80053; 82330; 82435; 82803; 82947; 82948; 83036; 83605; 83735; 84100; 84132; 84295; 85018; 85025; 85027; 85347; 85576; 85610; 85730; 86022; 86850; 86900; 86901; 86922; 88305; 88311; 93005; 93318; 93880; 94002; 94010; 94150; 97039; A4218; A7048; C9113; J0171; J0697; J1644; J1652; J1815; J2001; J2150; J2250; J2260; J2704; J2710; J2720; J2795; J3010; J3480; J3490; J7030; J7040; P9016; P9034; P9045; P9047

== ENCOUNTER 2018-01-02 17:25 | Inpatient (IN) | payer MEDICARE ==
[~2018-01-02] VITALS: Ht 167.6 cm; Wt 54.8 kg
[~2018-01-02 17:25] MED LIST changes: -AMLO5TAB2 PO; -BENA40TA9 PO; +FURO20TA6 PO; -FURO40TA5 PO; +TRAM50TA4 PO; +WARF5TAB76 PO; +WARF7.5T23 PO
[2018-01-02 17:59] LABS: EOSINOPHILS % (AUTO) 1.1 % (0.0-8.0); HEMATOCRIT 30.1 % (42-54); LYMPHOCYTES % (AUTO) 31.2 % (21.0-51.0); MEAN CORPUSCULAR HEMOGLOBIN 30.2 pg (27.0-33.0); MEAN CORPUSCULAR HGB CONC 32.9 g/dL (32.0-36.0); MEAN CORPUSCULAR VOLUME 91.6 fL (79-99); NEUTROPHILS % (AUTO) 11.7 % (40.0-77.0); NUCLEATED RED BLOOD CELLS 0.2 % (0.0-0.19); PLATELET COUNT (AUTO) 127 K/uL (130-400); RED BLOOD CELL COUNT(AUTO) 3.28 MIL/uL (4.50-6.20); RED CELL DISTRIBUTION WIDTH 17.4 % (11.0-15.5); WHITE BLOOD COUNT (AUTO) 1.5 K/uL (4.8-10.8)
[2018-01-02 18:06] LABS: CREATININE 1.6 mg/dL (0.5-1.5); POTASSIUM 3.7 mmol/L (3.5-5.1)
[2018-01-02 18:08] LABS: INR 2.56 (0.85-1.15); PARTIAL THROMBOPLASTIN TIME 36.1 SEC (26.3-35.5); PROTHROMBIN TIME 26.4 SEC (9.6-11.6)
[2018-01-02 18:13] LABS: APPEARANCE,URINE Clear (CLEAR); BILIRUBIN,URINE Negative (NEGATIVE); COLOR,URINE Yellow (YELLOW); GLUCOSE, URINE (UA) Negative (NEGATIVE); KETONES,URINE Negative (NEGATIVE); LEUKOCYTE ESTERASE ,URINE Negative (NEGATIVE); NITRATE,URINE Negative (NEGATIVE); OCCULT BLOOD,URINE Negative (NEGATIVE); PH,URINE 6.5 (5.0-8.0); PROTEIN,URINE POS 1+ (NEGATIVE); UROBILINOGEN,URINE 0.2 mg/dL (0.2-1.0)
[2018-01-02 18:21] LABS: ALBUMIN 3.6 g/dL (3.5-5.0); CREATINE KINASE MB 1.3 ng/mL (0.5-3.6); TOTAL PROTEIN, SERUM 7.7 g/dL (6.0-8.3); TROPONIN I 0.07 ng/mL (0.00-0.06)
[2018-01-02 18:24] LABS: BACTERIA,URINE None Seen /HPF (None Seen); RBC,URINE 0-1 /HPF (0-1); SQUAMOUS EPITHELIAL CELL,UR 0-2 /HPF (0-2); WBC,URINE None Seen /HPF (0-1)
[2018-01-02] MEDS ORDERED: CEFTRIAXONE SODIUM 1 GM ONE (18:38)
[2018-01-02] MEDS ORDERED: AZITHROMYCIN 250 MG TABLET PO ONE (18:39)
[2018-01-02] MEDS ORDERED: SODIUM CHLORIDE 0.9% 1000ML 1,000 ML IV ONE (20:19)
[2018-01-02] MEDS ORDERED: ACETAMINOPHEN 325 MG TAB ONE (20:20)
[2018-01-02] MEDS ORDERED: DEXTROSE 50%-WATER 50 ML DISP.SYRIN IV PRN (23:45)
[2018-01-02] MEDS ORDERED: GLUCAGON 1MG KIT 1 MG ML IM PRN (23:45)
[2018-01-02] MEDS ORDERED: ACETAMINOPHEN 325 MG TAB PO PRN (23:45)
[2018-01-02] MEDS ORDERED: ONDANSETRON HCL MDV 20ML 2 MG/ML VIAL IVP PRN (23:45)
[2018-01-02] MEDS ORDERED: ALPRAZOLAM 0.25 MG TABLET PO PRN (23:45)
[2018-01-03] VITALS (7 sets, daily range): BP systolic 121–151; BP diastolic 63–82
[2018-01-03] MEDS: LEVOFLOXACIN 500 MG/D5W 100 ML 100 ML IV SCH ×2 (01:28→21:29)
[2018-01-03 03:57] LABS: HEMATOCRIT 25.8 % (42-54); MEAN CORPUSCULAR HEMOGLOBIN 31.8 pg (27.0-33.0); MEAN CORPUSCULAR HGB CONC 34.7 g/dL (32.0-36.0); MEAN CORPUSCULAR VOLUME 91.8 fL (79-99); NUCLEATED RED BLOOD CELLS 0.1 % (0.0-0.19); PLATELET COUNT (AUTO) 104 K/uL (130-400); RED BLOOD CELL COUNT(AUTO) 2.81 MIL/uL (4.50-6.20); RED CELL DISTRIBUTION WIDTH 17.3 % (11.0-15.5); WHITE BLOOD COUNT (AUTO) 3.9 K/uL (4.8-10.8)
[2018-01-03 04:11] LABS: B-TYPE NATRIURETIC PEPTIDE 2290 pg/mL (0-100); CREATININE 1.5 mg/dL (0.5-1.5); POTASSIUM 3.6 mmol/L (3.5-5.1)
[2018-01-03] MEDS: INSULIN R PO SS1 SQ SCH ×4 (07:30→21:00)
[2018-01-03] MEDS ORDERED: LATA2.5D2 OU (07:52)
[2018-01-03] MEDS ORDERED: PRAV10TA39 PO (07:52)
[2018-01-03] MEDS ORDERED: FURO20TA4 PO (07:52)
[2018-01-03] MEDS ORDERED: CYAN-35 PO (07:52)
[2018-01-03] MEDS ORDERED: FUROSEMIDE 10 MG/ML 2ML VIAL IVP SCH (09:00)
[2018-01-03] MEDS ORDERED: ENOXAPARIN SODIUM 40 MG/0.4 ML SYRINGE SQ SCH (09:00)
[2018-01-03 11:26] LABS: TROPONIN I 0.13 ng/mL (0.00-0.06)
[2018-01-03] MEDS ORDERED: LIDOCAINE HCL-MPF 1% 2ML VIAL IVP PRN (11:45)
[2018-01-03] MEDS ORDERED: POTASSIUM CHLORIDE 10% ELIXIR 20 MEQ/15 ML UDCUP PO PRN (11:45)
[2018-01-03] MEDS ORDERED: POTASSIUM CHLORIDE 20MEQ/100ML 100 ML IV PRN (11:45)
[2018-01-03] MEDS: CLOPIDOGREL BISULFATE 75 MG TAB PO SCH (13:16)
[2018-01-03] MEDS: ASPIRIN 81MG TAB.CHEW PO SCH (13:16)
[2018-01-03] MEDS: POTASSIUM CHLORIDE 20 MEQ ERTAB PO PRN (13:17)
[2018-01-03] MEDS ORDERED: WARFARIN SODIUM 5 MG TAB PO SCH (16:30)
[2018-01-03] MEDS: FUROSEMIDE 10 MG/ML 2ML VIAL IVP SCH (21:28)
[2018-01-04 04:03] VITALS: BP 163/73
[2018-01-04] MEDS: INSULIN R PO SS1 SQ SCH ×4 (06:21→21:00)
[2018-01-04] MEDS: POTASSIUM CHLORIDE 20 MEQ ERTAB PO PRN ×2 (07:03→16:34)
[2018-01-04 07:10] VITALS: BP 157/78
[2018-01-04] MEDS: ASPIRIN 81MG TAB.CHEW PO SCH (09:20)
[2018-01-04] MEDS: CLOPIDOGREL BISULFATE 75 MG TAB PO SCH (09:20)
[2018-01-04] MEDS: FUROSEMIDE 10 MG/ML 2ML VIAL IVP SCH (09:21)
[2018-01-04 11:13] VITALS: BP 167/82
[2018-01-04 11:51] LABS: BASOPHILS % (AUTO) 0.4 % (0.0-5.0); EOSINOPHILS % (AUTO) 2.9 % (0.0-8.0); LYMPHOCYTES % (AUTO) 27.6 % (21.0-51.0); MEAN CORPUSCULAR HEMOGLOBIN 30.6 pg (27.0-33.0); MEAN CORPUSCULAR HGB CONC 33.4 g/dL (32.0-36.0); MEAN CORPUSCULAR VOLUME 91.6 fL (79-99); MONOCYTES % (AUTO) 40.5 % (3.0-13.0); NEUTROPHILS % (AUTO) 28.6 % (40.0-77.0); NUCLEATED RED BLOOD CELLS 0.2 % (0.0-0.19); PLATELET COUNT (AUTO) 108 K/uL (130-400); RED BLOOD CELL COUNT(AUTO) 3.17 MIL/uL (4.50-6.20); RED CELL DISTRIBUTION WIDTH 17.1 % (11.0-15.5); WHITE BLOOD COUNT (AUTO) 3.6 K/uL (4.8-10.8)
[2018-01-04 12:02] LABS: CREATININE 1.5 mg/dL (0.5-1.5); POTASSIUM 3.4 mmol/L (3.5-5.1)
[2018-01-04 12:28] LABS: B-TYPE NATRIURETIC PEPTIDE 999 pg/mL (0-100)
[2018-01-04] MEDS: METOPROLOL TARTRATE 25 MG TAB PO SCH ×2 (12:30→19:48)
[2018-01-04 15:56] VITALS: BP 143/72
[2018-01-04] MEDS ORDERED: WARFARIN SODIUM 5 MG TAB PO SCH (16:00)
[2018-01-04] MEDS: FUROSEMIDE 40 MG TABLET PO SCH (16:31)
[2018-01-04 19:59] VITALS: BP 153/84
[2018-01-04] MEDS: LEVOFLOXACIN 500 MG/D5W 100 ML 100 ML IV SCH (20:50)
[2018-01-05 00:43] VITALS: BP 158/73
[2018-01-05 04:02] LABS: BASOPHILS % (AUTO) 0.5 % (0.0-5.0); EOSINOPHILS % (AUTO) 4.2 % (0.0-8.0); HEMATOCRIT 28.1 % (42-54); LYMPHOCYTES % (AUTO) 22.5 % (21.0-51.0); MEAN CORPUSCULAR HEMOGLOBIN 31.1 pg (27.0-33.0); MEAN CORPUSCULAR VOLUME 91.5 fL (79-99); MONOCYTES % (AUTO) 28.3 % (3.0-13.0); NEUTROPHILS % (AUTO) 44.5 % (40.0-77.0); NUCLEATED RED BLOOD CELLS 0.3 % (0.0-0.19); PLATELET COUNT (AUTO) 110 K/uL (130-400); RED BLOOD CELL COUNT(AUTO) 3.07 MIL/uL (4.50-6.20); RED CELL DISTRIBUTION WIDTH 16.8 % (11.0-15.5); WHITE BLOOD COUNT (AUTO) 3.5 K/uL (4.8-10.8)
[2018-01-05 04:03] VITALS: BP 147/80
[2018-01-05 04:05] LABS: CREATININE 1.6 mg/dL (0.5-1.5); POTASSIUM 3.5 mmol/L (3.5-5.1)
[2018-01-05] MEDS: POTASSIUM CHLORIDE 20 MEQ ERTAB PO PRN ×2 (05:06→16:59)
[2018-01-05] MEDS: INSULIN R PO SS1 SQ SCH ×3 (06:53→16:24)
[2018-01-05 07:47] VITALS: BP 142/70
[2018-01-05] MEDS: CLOPIDOGREL BISULFATE 75 MG TAB PO SCH (08:26)
[2018-01-05] MEDS: ASPIRIN 81MG TAB.CHEW PO SCH (08:26)
[2018-01-05] MEDS: METOPROLOL TARTRATE 25 MG TAB PO SCH (08:27)
[2018-01-05] MEDS: FUROSEMIDE 40 MG TABLET PO SCH ×2 (08:27→16:57)
[2018-01-05 11:00] VITALS: BP 138/66
[2018-01-05 16:00] VITALS: BP 130/73
[2018-01-05] MEDS ORDERED: WARFARIN SODIUM 7.5 MG TAB PO SCH (16:00)
== END 2018-01-05 18:55 | disposition home or self-care (01) | DRG 291 ==
LOC: EDH 17:25 → EDHIP 21:55 → 2AH 01-03 00:15
PROVIDERS: ADMIT Specialist; ATTEND Specialist
DX: I13.0 Hypertensive heart and chronic kidney disease with heart failure and stage 1 through stage 4 chronic kidney disease, or unspecified chronic kidney disease (principal); J18.9 Pneumonia, unspecified organism; I50.43 Acute on chronic combined systolic (congestive) and diastolic (congestive) heart failure; E87.1 Hypo-osmolality and hyponatremia; D61.818 Other pancytopenia; D68.59 Other primary thrombophilia; N18.4 Chronic kidney disease, stage 4 (severe); J90 Pleural effusion, not elsewhere classified; D63.8 Anemia in other chronic diseases classified elsewhere; F41.9 Anxiety disorder, unspecified; I08.1 Rheumatic disorders of both mitral and tricuspid valves; I25.10 Atherosclerotic heart disease of native coronary artery without angina pectoris; I27.29 Other secondary pulmonary hypertension; I48.2 Chronic atrial fibrillation; Z79.01 Long term (current) use of anticoagulants; Z95.5 Presence of coronary angioplasty implant and graft; Z95.2 Presence of prosthetic heart valve; Z95.1 Presence of aortocoronary bypass graft; Z87.11 Personal history of peptic ulcer disease; Z83.3 Family history of diabetes mellitus; Z82.49 Family history of ischemic heart disease and other diseases of the circulatory system
CPT/HCPCS: 36415; 71045; 80048; 80053; 81001; 82550; 82553; 82948; 83605; 83874; 83880; 84484; 85025; 85027; 85060; 85610; 85730; 87040; 87088; 93005; J0696; J1940; J1956; J7030

== ENCOUNTER 2018-05-09 12:21 | Emergency (ER) | payer OTHER ==
[~2018-05-09 12:21] MED LIST changes: +CYAN-35 PO; +FURO20TA4 PO; -FURO20TA6 PO; +LATA2.5D2 OU; +PRAV10TA39 PO; -TRAM50TA4 PO
[2018-05-09] MEDS ORDERED: TETANUS/DIPHTHERIA TOXOID [ADULT] 0.5 ML VIAL IM ONE (13:07)
[2018-05-09 13:29] LABS: CREATININE 1.6 mg/dL (0.5-1.5); POTASSIUM 4.4 mmol/L (3.5-5.1)
[2018-05-09 13:32] LABS: INR 2.34 (0.85-1.15); PARTIAL THROMBOPLASTIN TIME 34.7 SEC (26.3-35.5); PROTHROMBIN TIME 24.2 SEC (9.6-11.6)
[2018-05-09 13:42] LABS: ALBUMIN 3.5 g/dL (3.5-5.0); BILIRUBIN,TOTAL 0.7 mg/dL (0.2-1.0); TOTAL PROTEIN, SERUM 7.7 g/dL (6.0-8.3)
[2018-05-09 14:06] LABS: BASOPHILS % (AUTO) 0.2 % (0.0-5.0); EOSINOPHILS % (AUTO) 0.2 % (0.0-8.0); LYMPHOCYTES % (AUTO) 5.2 % (21.0-51.0); MEAN CORPUSCULAR HGB CONC 32.9 g/dL (32.0-36.0); MEAN CORPUSCULAR VOLUME 91.1 fL (79-99); NEUTROPHILS % (AUTO) 91.4 % (40.0-77.0); PLATELET COUNT (AUTO) 103 K/uL (130-400); RED BLOOD CELL COUNT(AUTO) 3.08 MIL/uL (4.50-6.20); RED CELL DISTRIBUTION WIDTH 14.5 % (11.0-15.5); WHITE BLOOD COUNT (AUTO) 9.6 K/uL (4.8-10.8)
[2018-05-09] MEDS ORDERED: TRAMADOL HCL 50 MG TABLET ONE (14:16)
[2018-05-09] MEDS ORDERED: OCTYL 2-CYANOACRYLATE 1 EACH TP ONE (15:18)
== END 2018-05-09 15:58 | disposition home or self-care (01) ==
LOC: EDH 12:21
DX: S01.21XA Laceration without foreign body of nose, initial encounter (principal); S01.411A Laceration without foreign body of right cheek and temporomandibular area, initial encounter; R79.1 Abnormal coagulation profile; I25.10 Atherosclerotic heart disease of native coronary artery without angina pectoris; E78.5 Hyperlipidemia, unspecified; E07.9 Disorder of thyroid, unspecified; Z95.1 Presence of aortocoronary bypass graft; Z98.890 Other specified postprocedural states; W01.190A Fall on same level from slipping, tripping and stumbling with subsequent striking against furniture, initial encounter; Y93.89 Activity, other specified; Y92.89 Other specified places as the place of occurrence of the external cause; Y99.8 Other external cause status
CPT/HCPCS: 12011; 36415; 70450; 70486; 71045; 72125; 80053; 82550; 84484; 85025; 85610; 85730; 90471; 90714; 93005

== ENCOUNTER → 2018-05-22 | Outpatient (CLI) | payer MEDICARE, OTHER | END | disposition home or self-care (01) | LOC: RAH 13:55 | PROVIDERS: ATTEND Internal Medicine Cardiovascular Disease | DX: R19.09 Other intra-abdominal and pelvic swelling, mass and lump (principal); I12.9 Hypertensive chronic kidney disease with stage 1 through stage 4 chronic kidney disease, or unspecified chronic kidney disease; N18.3 Chronic kidney disease, stage 3 (moderate); I48.2 Chronic atrial fibrillation | CPT/HCPCS: 76882 ==

== ENCOUNTER 2018-08-17 22:21 | Observation (INO) | payer OTHER ==
[~2018-08-17] VITALS: Ht 165.1 cm; Wt 55.7 kg
[2018-08-17 23:03] LABS: CREATININE 1.4 mg/dL (0.5-1.5); POTASSIUM 4.3 mmol/L (3.5-5.1)
[2018-08-17 23:05] LABS: INR 1.99 (0.85-1.15); PARTIAL THROMBOPLASTIN TIME 47.4 SEC (26.3-35.5); PROTHROMBIN TIME 20.6 SEC (9.6-11.6)
[2018-08-17 23:08] LABS: ALBUMIN 3.2 g/dL (3.5-5.0); BASOPHILS % (AUTO) 0.6 % (0.0-5.0); BILIRUBIN,TOTAL 1.1 mg/dL (0.2-1.0); EOSINOPHILS % (AUTO) 2.5 % (0.0-8.0); HEMATOCRIT 27.8 % (42-54); LYMPHOCYTES % (AUTO) 4.9 % (21.0-51.0); MEAN CORPUSCULAR HEMOGLOBIN 29.4 pg (27.0-33.0); MEAN CORPUSCULAR HGB CONC 32.7 g/dL (32.0-36.0); MONOCYTES % (AUTO) 6.2 % (3.0-13.0); NEUTROPHILS % (AUTO) 85.8 % (40.0-77.0); PLATELET COUNT (AUTO) 143 K/uL (130-400); RED BLOOD CELL COUNT(AUTO) 3.09 MIL/uL (4.50-6.20); TOTAL PROTEIN, SERUM 7.8 g/dL (6.0-8.3); WHITE BLOOD COUNT (AUTO) 9.3 K/uL (4.8-10.8)
[2018-08-17 23:09] LABS: ABG BASE EXCESS -2.9 mmol/L (-2.0-3.0); ABG HCO3 21.1 mmol/L (21.0-28.0); ABG OXYGEN SATURATION 98.1 % (95.0-99.0); ABG PCO2 35 mmHg (35-48)
[2018-08-17 23:13] LABS: B-TYPE NATRIURETIC PEPTIDE 1270 pg/mL (0-100)
[2018-08-17] MEDS ORDERED: ASPIRIN 325 MG TABLET ONE (23:37)
[2018-08-17] MEDS ORDERED: FUROSEMIDE 10 MG/ML 2ML VIAL ONE (23:37)
[2018-08-18] MEDS ORDERED: ACETAMINOPHEN 325 MG TAB PO PRN (00:15)
[2018-08-18] MEDS ORDERED: ALBUTEROL SULFATE 0.083% 2.5 MG/3 ML INH IH PRN (00:15)
[2018-08-18] MEDS ORDERED: MORPHINE SULFATE 2 MG/ML 1ML SYG IV PRN (00:15)
[2018-08-18] MEDS ORDERED: ONDANSETRON HCL 4 MG/2 ML VIAL IV PRN (00:15)
[2018-08-18] MEDS ORDERED: NITROGLYCERIN 1GM/1 INCH PACKET TD ONE ×2 (00:37→08:30)
[2018-08-18 01:47] LABS: APPEARANCE,URINE Clear (CLEAR); BILIRUBIN,URINE Negative (NEGATIVE); COLOR,URINE Yellow (YELLOW); GLUCOSE, URINE (UA) Negative (NEGATIVE); KETONES,URINE Negative (NEGATIVE); LEUKOCYTE ESTERASE ,URINE Negative (NEGATIVE); NITRATE,URINE Negative (NEGATIVE); OCCULT BLOOD,URINE Negative (NEGATIVE); PROTEIN,URINE POS 2+ (NEGATIVE); UROBILINOGEN,URINE 0.2 mg/dL (0.2-1.0)
[2018-08-18] MEDS: LEVOTHYROXINE 50 MCG TABLET PO SCH (07:30)
[2018-08-18] MEDS: NITROGLYCERIN 1GM/1 INCH PACKET TD SCH ×2 (08:15→15:30)
[2018-08-18] MEDS ORDERED: FUROSEMIDE 20 MG TABLET ONE (08:29)
[2018-08-18] MEDS ORDERED: CLOPIDOGREL BISULFATE 75 MG TAB ONE (08:30)
[2018-08-18] MEDS ORDERED: LEVOTHYROXINE 25 MCG TABLET ONE (08:30)
[2018-08-18] MEDS: FAMOTIDINE/PF 20 MG/2 ML VIAL IV SCH ×2 (09:00→21:19)
[2018-08-18] MEDS ORDERED: FUROSEMIDE 20 MG TABLET PO SCH (09:00)
[2018-08-18] MEDS ORDERED: ASPIRIN 81 MG EC TAB PO SCH (09:00)
[2018-08-18] MEDS: CLOPIDOGREL BISULFATE 75 MG TAB PO SCH (09:00)
[2018-08-18 09:16] VITALS: BP 152/79
[2018-08-18] MEDS: LATANOPROST 2.5 ML DROPS OU SCH ×2 (10:00→21:00)
[2018-08-18] MEDS ORDERED: LIDOCAINE HCL 1% 20 ML VIAL INJ SCH (10:48)
--- NOTE | 2018-08-18 11:15 | NUR ---
TIMEOUT DONE. PATIENT FOR LEFT THORACENTESIS BY DR. RENO.
--- NOTE | 2018-08-18 11:30 | NUR ---
1.3L PLEURAL FLUID COLLECTED. AWAITING CHEST XRAY. VITAL SIGNS MONITORED. PATIENT DENIES SHORTNESS OF BREATH.
[2018-08-18 12:53] LABS: LIPASE,BODY FLUID 36 U/L; TRIGLYCERIDES,BODY FLUID < 15 mg/dL
--- NOTE | 2018-08-18 13:09 | NUR ---
PAGED [facility] CL[facility] FOR NEW CONSULT. AWAITING MD'S CALLBACK.
--- NOTE | 2018-08-18 13:11 | NUR ---
DR. KRAMER CALLED BACK AND INFORMED HIM OF THE NEW CONSULT FOR ELEVATED TROPONIN AND PLEURAL EFFUSION.
[2018-08-18 13:37] LABS: APPEARANCE BODY FLUID BLOODY (CLEAR); COLOR,BODY FLUID RED (LT YELLOW); SPECIMENTYPE,BODY FLUID PLEURAL; TOTAL VOLUME,BODY FLUID 1350 mL
[2018-08-18 13:38] LABS: BODY FLUID RBC 25125 /cu. mm.; BODY FLUID WBC 107 /cu. mm.
[2018-08-18 13:40] LABS: BF EOSINOPHIL 2 %; BF LYMPHOCYTE 69 %; BF MONOCYTE 11 %
--- NOTE | 2018-08-18 13:55 | NUR ---
ASSISTED PATIENT TO RESTROOM AND BACK TO BED. OBSERVED THAT PATIENT'S LEFT THORACENTESIS SITE LOOKS A BIT PUFFY. PATIENT VOICED THAT SITE FEELS TENDER WHEN PRESSED. GRAPEFRUIT SIZE SWELLING NOTED ON SITE. HAWK JOHNSON IS ALSO IN ROOM TO OBSERVE THIS. INFORMED DR. RENO ABOUT THIS AND MD ORDERED FOR PRESSURE TO BE APPLIED FOR 10-15 MINUTES THEN ORDER CBC AND CXR.
--- NOTE | 2018-08-18 14:10 | NUR ---
PRESSURE APPLIED TO LEFT THORACENTESIS SITE SWELLING ORDERED BY DR. RENO. CXR TAKEN. MD IN ROOM TO ASSESS SITE. MD SAID THAT THERE MIGHT BE SMALL BLEEDING INSIDE BUT POINTS OUT THAT RIGHT SIDE OF THE BACK IS THE SAME THE LEFT SIDE. MD SAID THAT HE DOES NOT SEE A DIFFERENCE FROM BEFORE THORACENTESIS WAS DONE. AWAITING F/U XRAY RESULT.
--- NOTE | 2018-08-18 14:28 | NUR ---
DR. RENO CAME IN TO ASSESS PATIENT'S LEFT THORACENTESIS PUNCTURE SITE. XRAY TAKEN AND REVIEWED. SAID THAT PATIENT HAS A BIT OF TRAPPED LUNG THAT HAPPENS AFTER A LUNG PROCEDURE. PLEURAL EFFUSION LOOKS BETTER COMPARED TO PRE-THORACENTESIS. CBC PENDING.
[2018-08-18 14:55] LABS: BASOPHILS % (AUTO) 0.4 % (0.0-5.0); EOSINOPHILS % (AUTO) 2.5 % (0.0-8.0); HEMATOCRIT 28.5 % (42-54); LYMPHOCYTES % (AUTO) 5.5 % (21.0-51.0); MEAN CORPUSCULAR HEMOGLOBIN 29.3 pg (27.0-33.0); MEAN CORPUSCULAR VOLUME 91.4 fL (79-99); MONOCYTES % (AUTO) 5.3 % (3.0-13.0); NEUTROPHILS % (AUTO) 86.3 % (40.0-77.0); PLATELET COUNT (AUTO) 150 K/uL (130-400); RED BLOOD CELL COUNT(AUTO) 3.12 MIL/uL (4.50-6.20); WHITE BLOOD COUNT (AUTO) 8.8 K/uL (4.8-10.8)
[2018-08-18] MEDS: FUROSEMIDE 10 MG/ML 2ML VIAL IV SCH (15:29)
[2018-08-18] MEDS ORDERED: WARFARIN SODIUM 5 MG TAB PO SCH (16:00)
[2018-08-18 16:28] VITALS: BP 146/66
--- NOTE | 2018-08-18 19:20 | NUR ---
BEDSIDE REPORT HANDED TO FEDERICO JOHNSON. LEFT THORACENTESIS PUNCTURE SITE STILL APPEARS BULGING. PATIENT ONLY COMPLAINS OF DISCOMFORT WHEN AREA IS PRESSED.
[2018-08-18 20:21] VITALS: BP 179/66
[2018-08-18] MEDS ORDERED: SIMVASTATIN 10 MG TABLET PO SCH (21:00)
[2018-08-18] MEDS: OSELTAMIVIR PHOSPHATE 75 MG CAP PO SCH (21:19)
[2018-08-18] MEDS: DOXYCYCLINE HYCLATE 100 MG TABLET PO SCH (21:19)
[2018-08-18 23:45] VITALS: BP 125/80
[2018-08-19] MEDS: NITROGLYCERIN 1GM/1 INCH PACKET TD SCH (01:25)
[2018-08-19] MEDS: FUROSEMIDE 10 MG/ML 2ML VIAL IV SCH (01:26)
[2018-08-19 03:56] VITALS: BP 132/75
[2018-08-19 04:15] LABS: HEMATOCRIT 25.8 % (42-54); MEAN CORPUSCULAR HEMOGLOBIN 29.4 pg (27.0-33.0); MEAN CORPUSCULAR HGB CONC 32.7 g/dL (32.0-36.0); MEAN CORPUSCULAR VOLUME 89.9 fL (79-99); PLATELET COUNT (AUTO) 139 K/uL (130-400); RED BLOOD CELL COUNT(AUTO) 2.87 MIL/uL (4.50-6.20); RED CELL DISTRIBUTION WIDTH 16.1 % (11.0-15.5); WHITE BLOOD COUNT (AUTO) 9.2 K/uL (4.8-10.8)
[2018-08-19 04:25] LABS: BAND NEUTROPHILS % (MANUAL) 3 % (0-2); EOSINOPHILS % (MANUAL) 2 % (1-6); LYMPHOCYTES % (MANUAL) 15 % (22-44); MONOCYTES % (MANUAL) 3 % (2-9); SEGMENTED NEUTROPHILS % 77 % (40-70)
[2018-08-19 04:27] LABS: MAN.DIFF COMMENT-IMPRESSION MANUAL DIFFERENTIAL; PLATELET MORPHOLOGY COMMENT ADEQUATE
[2018-08-19 04:30] LABS: INR 2.17 (0.85-1.15); PARTIAL THROMBOPLASTIN TIME 51.1 SEC (26.3-35.5); PROTHROMBIN TIME 22.4 SEC (9.6-11.6)
[2018-08-19 04:41] LABS: ALBUMIN 2.6 g/dL (3.5-5.0); BILIRUBIN,TOTAL 0.8 mg/dL (0.2-1.0); CREATININE 1.5 mg/dL (0.5-1.5); PHOSPHORUS 3.6 mg/dL (2.5-4.9); POTASSIUM 3.8 mmol/L (3.5-5.1); THYROID STIMULATING HORMONE 3.68 uIU/mL (0.36-3.74); TOTAL PROTEIN, SERUM 6.5 g/dL (6.0-8.3)
[2018-08-19 07:30] VITALS: BP 147/79
[2018-08-19] MEDS: LEVOTHYROXINE 50 MCG TABLET PO SCH (07:30)
--- NOTE | 2018-08-19 07:50 | NUR ---
ASSESSMENT ENCOUNTERED PT IN DRUMMOND'S POSITION, A&OX3, CALM COOPERATIVE AND DOES NOT APPEAR TO BE IN ANY DISTRESS NOR ANY NEURO DEFICITS PRESENT. LEFT FLANK DRESSING DRY AND INTACT, SOFT TO TOUCH WITH NO OOZING OR HEMATOMA PRESENT. PT DENIES PAIN, SOB, NAUSEA. PT IS AMBULATORY, GAIT SLOW BUT STEADY WITH ASSIST. CALL LIGHT WITHIN REACH.
[2018-08-19] MEDS ORDERED: WARF-57 PO (10:13)
[2018-08-19] MEDS ORDERED: FURO20TA6 PO ×2 (10:13→17:02)
[2018-08-19] MEDS ORDERED: CYAN-35 PO (10:13)
[2018-08-19] MEDS ORDERED: SERT25TA5 PO (10:13)
[2018-08-19] MEDS ORDERED: AMLO5TAB9 PO (10:13)
[2018-08-19] MEDS: CLOPIDOGREL BISULFATE 75 MG TAB PO SCH (10:14)
[2018-08-19] MEDS: OSELTAMIVIR PHOSPHATE 75 MG CAP PO SCH (10:14)
[2018-08-19] MEDS: FAMOTIDINE/PF 20 MG/2 ML VIAL IV SCH (10:14)
[2018-08-19] MEDS: DOXYCYCLINE HYCLATE 100 MG TABLET PO SCH (10:14)
[2018-08-19] MEDS ORDERED: LATANOPROST 2.5 ML DROPS OU SCH (11:20)
[2018-08-19 11:27] VITALS: BP 148/78
[2018-08-19] MEDS ORDERED: WARFARIN SODIUM 7.5 MG TAB PO SCH (16:00)
[2018-08-19] MEDS ORDERED: WARFARIN SODIUM 5 MG TAB PO SCH (16:00)
[2018-08-19 16:10] VITALS: BP 177/84
[2018-08-19] MEDS ORDERED: DOXY100T2 PO (16:48)
[2018-08-19] MEDS ORDERED: CLOP75TA14 PO (16:48)
[2018-08-19] MEDS ORDERED: OSEL75 PO (16:48)
--- NOTE | 2018-08-19 17:00 | NUR ---
DISCHARGE INSTRUCTIONS GIVEN, PIV REMOVED AND INTACT, DISCHARGED HOME TO FAMILY VEHICLE VIA WHEELCHAIR.
[2018-08-19] MEDS ORDERED: AMLODIPINE BESYLATE 5 MG TAB PO ONE (17:07)
== END 2018-08-19 18:13 | disposition home or self-care (01) ==
LOC: EDH 22:21 → EDHIP 08-18 00:05 → 2DH 08-18 09:29
PROVIDERS: ADMIT Hospitalist; ATTEND Hospitalist
DX: I13.0 Hypertensive heart and chronic kidney disease with heart failure and stage 1 through stage 4 chronic kidney disease, or unspecified chronic kidney disease (principal); J91.8 Pleural effusion in other conditions classified elsewhere; B34.9 Viral infection, unspecified; D64.9 Anemia, unspecified; D68.69 Other thrombophilia; E03.9 Hypothyroidism, unspecified; E78.5 Hyperlipidemia, unspecified; N18.3 Chronic kidney disease, stage 3 (moderate); I25.10 Atherosclerotic heart disease of native coronary artery without angina pectoris; I35.0 Nonrheumatic aortic (valve) stenosis; I48.2 Chronic atrial fibrillation; I50.33 Acute on chronic diastolic (congestive) heart failure; J98.11 Atelectasis; Z95.1 Presence of aortocoronary bypass graft; Z95.3 Presence of xenogenic heart valve; Z95.5 Presence of coronary angioplasty implant and graft; Z79.01 Long term (current) use of anticoagulants; Z79.82 Long term (current) use of aspirin; Z79.890 Hormone replacement therapy; Z79.899 Other long term (current) drug therapy
CPT/HCPCS: 36415 ×3; 36600; 71045 ×4; 80053 ×2; 81003; 82803; 82945; 83605 ×2; 83615 ×2; 83690; 83735; 83880; 83986; 84100; 84157; 84443; 84478; 84484 ×2; 85025 ×3; 85610 ×2; 85730 ×2; 87071; 87116; 87205; 87206; 88108; 88305; 89051; 93005; 93306; 94664; 96374; 96375; 96376; 99284; C1729; G0378 ×42; J1940 ×3; J3490 ×2

== ENCOUNTER 2018-11-06 11:56 | Emergency (ER) | payer OTHER ==
[~2018-11-06 11:56] MED LIST changes: -AEC81 PO; +AMLO5TAB9 PO; +CLOP75TA14 PO; -CLOP75TA32 PO; +DOXY100T2 PO; -FURO20TA4 PO; +FURO20TA6 PO; -LATA2.5D2 OU; +OSEL75 PO; +SERT25TA5 PO; +WARF-57 PO; -WARF5TAB76 PO; -WARF7.5T23 PO
[2018-11-06 12:28] LABS: BASOPHILS % (AUTO) 0.3 % (0.0-5.0); EOSINOPHILS % (AUTO) 0.8 % (0.0-8.0); HEMATOCRIT 28.1 % (42-54); LYMPHOCYTES % (AUTO) 8.8 % (21.0-51.0); MEAN CORPUSCULAR HEMOGLOBIN 30.6 pg (27.0-33.0); MEAN CORPUSCULAR HGB CONC 32.4 g/dL (32.0-36.0); MEAN CORPUSCULAR VOLUME 94.4 fL (79-99); MONOCYTES % (AUTO) 7.4 % (3.0-13.0); NEUTROPHILS % (AUTO) 82.7 % (40.0-77.0); PLATELET COUNT (AUTO) 149 K/uL (130-400); RED BLOOD CELL COUNT(AUTO) 2.98 MIL/uL (4.50-6.20); RED CELL DISTRIBUTION WIDTH 17.5 % (11.0-15.5); WHITE BLOOD COUNT (AUTO) 10.9 K/uL (4.8-10.8)
[2018-11-06 12:45] LABS: CREATININE 1.4 mg/dL (0.5-1.5); POTASSIUM 3.4 mmol/L (3.5-5.1)
[2018-11-06 12:46] LABS: INR 1.95 (0.85-1.15); PARTIAL THROMBOPLASTIN TIME 45.5 SEC (26.3-35.5); PROTHROMBIN TIME 20.2 SEC (9.6-11.6)
[2018-11-06 12:55] LABS: ALBUMIN 3.3 g/dL (3.5-5.0); BILIRUBIN,TOTAL 0.5 mg/dL (0.2-1.0); TOTAL PROTEIN, SERUM 8.8 g/dL (6.0-8.3)
[2018-11-06] MEDS ORDERED: VANCOMYCIN 1GM+NS 250ML 250 ML IV ONE (13:25)
[2018-11-06 13:27] LABS: B-TYPE NATRIURETIC PEPTIDE 1200 pg/mL (0-100)
[2018-11-06] MEDS ORDERED: FUROSEMIDE 10 MG/ML 2ML VIAL ONE (18:57)
== END 2018-11-06 19:59 | disposition home or self-care (01) ==
LOC: EDH 11:56
DX: J90 Pleural effusion, not elsewhere classified (principal); L02.214 Cutaneous abscess of groin; I25.810 Atherosclerosis of coronary artery bypass graft(s) without angina pectoris; I50.9 Heart failure, unspecified; E78.5 Hyperlipidemia, unspecified; E07.9 Disorder of thyroid, unspecified; Z95.2 Presence of prosthetic heart valve
CPT/HCPCS: 36415; 71045; 74176; 76882; 80053; 82550; 83874; 83880; 84484; 85025; 85610; 85730; 93005; 96374; 99285; J1940; J3370

== ENCOUNTER 2018-11-11 14:30 | Inpatient (IN) | payer OTHER ==
[~2018-11-11] VITALS: Ht 165.1 cm; Wt 53.4 kg
[2018-11-11 14:57] LABS: BASOPHILS % (AUTO) 0.4 % (0.0-5.0); HEMATOCRIT 28.8 % (42-54); LYMPHOCYTES % (AUTO) 9.6 % (21.0-51.0); MEAN CORPUSCULAR HEMOGLOBIN 31.2 pg (27.0-33.0); MEAN CORPUSCULAR HGB CONC 32.8 g/dL (32.0-36.0); MEAN CORPUSCULAR VOLUME 95.2 fL (79-99); MONOCYTES % (AUTO) 6.1 % (3.0-13.0); NEUTROPHILS % (AUTO) 82.9 % (40.0-77.0); PLATELET COUNT (AUTO) 170 K/uL (130-400); RED BLOOD CELL COUNT(AUTO) 3.02 MIL/uL (4.50-6.20); RED CELL DISTRIBUTION WIDTH 17.1 % (11.0-15.5); WHITE BLOOD COUNT (AUTO) 8.9 K/uL (4.8-10.8)
[2018-11-11 15:08] LABS: CREATININE 1.5 mg/dL (0.5-1.5)
[2018-11-11 15:16] LABS: ALBUMIN 3.2 g/dL (3.5-5.0); BILIRUBIN,TOTAL 0.6 mg/dL (0.2-1.0); TOTAL PROTEIN, SERUM 7.9 g/dL (6.0-8.3)
[2018-11-11 16:08] LABS: INR 2.23 (0.85-1.15); PROTHROMBIN TIME 23.1 SEC (9.6-11.6)
[2018-11-11 16:17] LABS: CRP QUANTITATIVE 15.8 mg/L (0.00-9.0)
[2018-11-11 16:27] LABS: B-TYPE NATRIURETIC PEPTIDE 1290 pg/mL (0-100)
[2018-11-11 17:05] LABS: ERYTHROCYTE SEDIMENTATION RATE 73 MM/HR (0-20)
[2018-11-11 17:38] LABS: APPEARANCE,URINE Clear (CLEAR); BILIRUBIN,URINE Negative (NEGATIVE); COLOR,URINE Yellow (YELLOW); GLUCOSE, URINE (UA) Negative (NEGATIVE); KETONES,URINE Negative (NEGATIVE); LEUKOCYTE ESTERASE ,URINE Negative (NEGATIVE); NITRATE,URINE Negative (NEGATIVE); OCCULT BLOOD,URINE Negative (NEGATIVE); PROTEIN,URINE POS 1+ mg/dL (NEGATIVE); UROBILINOGEN,URINE 0.2 mg/dL (0.2-1.0)
[2018-11-11 18:04] LABS: RBC,URINE 0-1 /HPF (0-1)
[2018-11-11 18:05] LABS: BACTERIA,URINE Rare /HPF (None Seen); SQUAMOUS EPITHELIAL CELL,UR Rare /HPF (0-2)
[2018-11-11 18:06] LABS: HYALINE CASTS, URINE 0-1 /LPF (0-1 /LPF)
[2018-11-11] MEDS ORDERED: NITROGLYCERIN 0.4 MG SL TAB SL PRN (19:00)
[2018-11-11] MEDS ORDERED: ONDANSETRON HCL 4 MG/2 ML VIAL IV PRN (19:00)
[2018-11-11] MEDS ORDERED: ACETAMINOPHEN 325 MG TAB PO PRN ×2 (19:00)
[2018-11-11 20:35] VITALS: BP 155/78
[2018-11-11 20:52] LABS: MAGNESIUM 2.2 mg/dL (1.80-2.40); TROPONIN I 0.13 ng/mL (0.00-0.06)
[2018-11-11] MEDS ORDERED: METO5TAB2 PO (21:42)
[2018-11-11] MEDS ORDERED: LEVO75 PO (21:42)
[2018-11-11] MEDS ORDERED: LACTULOSE 20 GM/30 ML UDCUP PO PRN (21:45)
[2018-11-11] MEDS: FAMOTIDINE 20MG TAB 20 MG TAB PO SCH (22:35)
[2018-11-11 23:15] VITALS: BP 140/79
--- NOTE | 2018-11-12 03:55 | NUR ---
STATUS Pt awake,alert,states he could not sleep well.Denies pain or discomfort.Rt groin open wound,culture sent for aerobic and unaerobic.Pending surgical and pulmo consult in am.Tele a flutter 80's.
[2018-11-12 03:58] VITALS: BP 151/77
[2018-11-12 05:21] LABS: BASOPHILS % (AUTO) 0.4 % (0.0-5.0); EOSINOPHILS % (AUTO) 1.6 % (0.0-8.0); HEMATOCRIT 27.8 % (42-54); LYMPHOCYTES % (AUTO) 8.8 % (21.0-51.0); MEAN CORPUSCULAR HEMOGLOBIN 30.6 pg (27.0-33.0); MEAN CORPUSCULAR HGB CONC 32.5 g/dL (32.0-36.0); MEAN CORPUSCULAR VOLUME 94.1 fL (79-99); MONOCYTES % (AUTO) 6.3 % (3.0-13.0); NEUTROPHILS % (AUTO) 82.9 % (40.0-77.0); NUCLEATED RED BLOOD CELLS 0.1 % (0.0-0.19); PLATELET COUNT (AUTO) 184 K/uL (130-400); RED BLOOD CELL COUNT(AUTO) 2.96 MIL/uL (4.50-6.20); RED CELL DISTRIBUTION WIDTH 17.5 % (11.0-15.5); WHITE BLOOD COUNT (AUTO) 10.4 K/uL (4.8-10.8)
[2018-11-12 05:32] LABS: INR 2.16 (0.85-1.15); PARTIAL THROMBOPLASTIN TIME 43.1 SEC (26.3-35.5); PROTHROMBIN TIME 22.3 SEC (9.6-11.6)
[2018-11-12 05:38] LABS: ALBUMIN 3.1 g/dL (3.5-5.0); BILIRUBIN,TOTAL 0.7 mg/dL (0.2-1.0); CREATININE 1.4 mg/dL (0.5-1.5); POTASSIUM 4.2 mmol/L (3.5-5.1); TOTAL PROTEIN, SERUM 7.7 g/dL (6.0-8.3)
[2018-11-12] MEDS: LEVOTHYROXINE 75 MCG TABLET PO SCH (06:43)
[2018-11-12] MEDS: METOCLOPRAMIDE 5 MG TABLET PO SCH ×3 (06:45→17:10)
[2018-11-12 08:00] VITALS: BP 132/69
[2018-11-12] MEDS ORDERED: ENOXAPARIN SODIUM 30 MG/0.3 ML SQ SCH (09:00)
[2018-11-12] MEDS: Cholecalciferol (Vitamin D3) (Vitamin D3) 1,000 UNIT PO SCH (09:00)
[2018-11-12] MEDS: FAMOTIDINE 20MG TAB 20 MG TAB PO SCH ×2 (09:38→21:02)
[2018-11-12] MEDS: AMLODIPINE BESYLATE 5 MG TAB PO SCH (09:38)
[2018-11-12] MEDS: SERTRALINE HCL 50 MG TABLET PO SCH (09:42)
[2018-11-12] MEDS: FUROSEMIDE 20 MG TABLET PO SCH ×2 (09:43→21:02)
[2018-11-12 12:00] VITALS: BP 145/85
[2018-11-12] MEDS: CYANOCOBALAMIN 1000 MCG PO SCH (12:00)
[2018-11-12] MEDS: FERROUS SULFATE 325 MG TABLET.DR PO SCH (12:29)
--- NOTE | 2018-11-12 14:30 | NUR ---
Nutrition Intervention: Nutrition consult for BMI 19.4, thin appearing. Pt. admitted with Dx of Right groin hematoma, Poss. Left Lung Mass. Pt. reports UBW was 123# back in August. Pt. has lost 7#(6% of UBW) in less than 3 months due to decreased appetite. Pt. on Heart Healthy diet with good p.o. intake, as per pt./family. Labs reviewed(Alb 3.1). Pt. reports was drinking Ensure supp. at home. Spoke with pt. regarding nutritional supplementation with Ensure and pt. agreed to try; stated would like nut. supp. to be sent with every meal. LBM: 11/11/18. SR-16, right groin open wound. BMI: 19.4, underweight for age. Pt. and family educated on Coumadin Food-Drug interaction with Vit K foods and provided with education material. Pt. and family verbalized understanding. Recommendations: 1) Continue current diet. 2) Rec. Vanilla Ensure TID with meals. 3) Coumadin Food-Drug interaction with Vit K foods education given to pt. and family. 4) Continue to monitor pt's nutritional status. 5) Consult RD as nutrition concerns arise. Addendum: 11/12/18 at [address] Amended: Links added.
--- NOTE | 2018-11-12 15:38 | NUR ---
DCP CM met with pt discussed dc plans. Pt id independent prior to admission, lives at home with spouse, daughter lives close by. Denies any equipments/services. Pt feels safe to go back home, spouse and daughter able to assist with transportation and needs as necessary. Dc plan to home once stable. CM to cont to follow up.
[2018-11-12 16:00] VITALS: BP 127/70
[2018-11-12] MEDS: WARFARIN SODIUM 5 MG TAB PO SCH (17:11)
[2018-11-12 19:46] VITALS: BP 130/73
[2018-11-12] MEDS: Pravastatin Sodium 10 MG PO SCH (21:00)
[2018-11-13] VITALS: BP 137/79
[2018-11-13 04:16] VITALS: BP 124/71
[2018-11-13 05:08] LABS: BASOPHILS % (AUTO) 0.2 % (0.0-5.0); EOSINOPHILS % (AUTO) 1.6 % (0.0-8.0); HEMATOCRIT 25.9 % (42-54); LYMPHOCYTES % (AUTO) 9.1 % (21.0-51.0); MEAN CORPUSCULAR HEMOGLOBIN 31.9 pg (27.0-33.0); MEAN CORPUSCULAR HGB CONC 33.7 g/dL (32.0-36.0); MEAN CORPUSCULAR VOLUME 94.7 fL (79-99); MONOCYTES % (AUTO) 6.5 % (3.0-13.0); NEUTROPHILS % (AUTO) 82.6 % (40.0-77.0); PLATELET COUNT (AUTO) 151 K/uL (130-400); RED BLOOD CELL COUNT(AUTO) 2.74 MIL/uL (4.50-6.20); RED CELL DISTRIBUTION WIDTH 17.1 % (11.0-15.5); WHITE BLOOD COUNT (AUTO) 8.9 K/uL (4.8-10.8)
[2018-11-13 05:21] LABS: INR 2.21 (0.85-1.15); PARTIAL THROMBOPLASTIN TIME 44.6 SEC (26.3-35.5); PROTHROMBIN TIME 22.8 SEC (9.6-11.6)
[2018-11-13 05:25] LABS: CREATININE 1.4 mg/dL (0.5-1.5); POTASSIUM 4.2 mmol/L (3.5-5.1)
[2018-11-13] MEDS: LEVOTHYROXINE 75 MCG TABLET PO SCH (06:27)
[2018-11-13] MEDS: METOCLOPRAMIDE 5 MG TABLET PO SCH ×3 (06:28→17:44)
[2018-11-13 07:30] VITALS: BP 142/89
[2018-11-13] MEDS: FUROSEMIDE 20 MG TABLET PO SCH ×2 (08:40→21:43)
[2018-11-13] MEDS: AMLODIPINE BESYLATE 5 MG TAB PO SCH (08:40)
[2018-11-13] MEDS: SERTRALINE HCL 50 MG TABLET PO SCH (08:41)
[2018-11-13] MEDS: FAMOTIDINE 20MG TAB 20 MG TAB PO SCH ×2 (08:41→21:41)
[2018-11-13] MEDS: Cholecalciferol (Vitamin D3) (Vitamin D3) 1,000 UNIT PO SCH (09:00)
[2018-11-13 11:00] VITALS: BP 95/44
[2018-11-13] MEDS: CYANOCOBALAMIN 1000 MCG PO SCH (12:00)
[2018-11-13] MEDS: FERROUS SULFATE 325 MG TABLET.DR PO SCH (12:00)
--- NOTE | 2018-11-13 12:51 | NUR ---
was able to get hold of the woundcare and notified them that there is a wound care consult and nobody has come to see the patient yet. they verbalized that they will see the patient in the afternoon.
[2018-11-13 16:00] VITALS: BP 102/55
--- NOTE | 2018-11-13 17:14 | NUR ---
[facility] CONSULT PATIENT ASSESSED ORDERED: PATIENT PRESENTS WITH A RT GROIN NON HEALING SURGICAL WOUND; [facility] RECOMMENDATIONS SUBMITTED. Addendum: 11/13/18 at 1715 by LARISSA BARRAGAN LVN LVN W Amended: Links added.
[2018-11-13] MEDS: WARFARIN SODIUM 5 MG TAB PO SCH (17:45)
[2018-11-13 20:00] VITALS: BP 103/48
[2018-11-13] MEDS: Pravastatin Sodium 10 MG PO SCH (21:00)
[2018-11-13] MEDS ORDERED: HYDROXYZINE HCL 25 MG TABLET PO PRN (22:15)
[2018-11-14] VITALS: BP 133/70
[2018-11-14 04:00] VITALS: BP 126/59
[2018-11-14 04:31] LABS: INR 2.14 (0.85-1.15); PARTIAL THROMBOPLASTIN TIME 42.9 SEC (26.3-35.5); PROTHROMBIN TIME 22.1 SEC (9.6-11.6)
[2018-11-14] MEDS: LEVOTHYROXINE 75 MCG TABLET PO SCH (06:31)
[2018-11-14] MEDS: METOCLOPRAMIDE 5 MG TABLET PO SCH ×3 (06:32→16:01)
[2018-11-14 07:51] VITALS: BP 140/60
[2018-11-14] MEDS: FAMOTIDINE 20MG TAB 20 MG TAB PO SCH ×2 (08:20→20:54)
[2018-11-14] MEDS: AMLODIPINE BESYLATE 5 MG TAB PO SCH (08:20)
[2018-11-14] MEDS: FUROSEMIDE 20 MG TABLET PO SCH ×2 (08:21→20:54)
[2018-11-14] MEDS: LEVOFLOXACIN 250 MG/D5W 50ML 50 ML IV SCH (08:21)
[2018-11-14] MEDS: SERTRALINE HCL 50 MG TABLET PO SCH (08:21)
[2018-11-14] MEDS: Cholecalciferol (Vitamin D3) (Vitamin D3) 1,000 UNIT PO SCH (09:00)
--- NOTE | 2018-11-14 11:00 | NUR ---
CM Note: [facility] pending [facility] approval CM met with pt discussed MD [facility] for [facility] for abx therapy, pt agreeable, LEONELA signed for [facility]. Faxed order and clinicals. Spoke to Hetal w/Alexandre, will come eval pt. Pt pending [facility] approval. MOT semi-filled, pending to be completed once pt approved. EMS filled out, flagged in chart, pending to be faxed w/current date, primary nurse to call [facility] once pt ready to DC. Primary nurse aware. CM to cont to follow up.
[2018-11-14 11:18] VITALS: BP 148/73
[2018-11-14] MEDS: FERROUS SULFATE 325 MG TABLET.DR PO SCH (16:01)
[2018-11-14] MEDS: WARFARIN SODIUM 5 MG TAB PO SCH (16:02)
[2018-11-14 16:04] VITALS: BP 133/60
[2018-11-14 20:00] VITALS: BP 117/64
[2018-11-14] MEDS: HONEY 1 APPL/ML TUBE TP SCH (20:00)
[2018-11-14] MEDS: Pravastatin Sodium 10 MG PO SCH (21:00)
[2018-11-15] VITALS (7 sets, daily range): BP systolic 122–149; BP diastolic 56–80
[2018-11-15 04:49] LABS: BASOPHILS % (AUTO) 0.3 % (0.0-5.0); HEMATOCRIT 26.5 % (42-54); LYMPHOCYTES % (AUTO) 9.4 % (21.0-51.0); MEAN CORPUSCULAR HEMOGLOBIN 31.5 pg (27.0-33.0); MEAN CORPUSCULAR HGB CONC 33.1 g/dL (32.0-36.0); MEAN CORPUSCULAR VOLUME 95.2 fL (79-99); MONOCYTES % (AUTO) 7.1 % (3.0-13.0); NEUTROPHILS % (AUTO) 81.2 % (40.0-77.0); NUCLEATED RED BLOOD CELLS 0.1 % (0.0-0.19); PLATELET COUNT (AUTO) 142 K/uL (130-400); RED BLOOD CELL COUNT(AUTO) 2.79 MIL/uL (4.50-6.20); RED CELL DISTRIBUTION WIDTH 17.2 % (11.0-15.5); WHITE BLOOD COUNT (AUTO) 8.4 K/uL (4.8-10.8)
[2018-11-15 05:00] LABS: INR 2.23 (0.85-1.15)
[2018-11-15 05:03] LABS: CREATININE 1.6 mg/dL (0.5-1.5); POTASSIUM 4.2 mmol/L (3.5-5.1)
[2018-11-15] MEDS: METOCLOPRAMIDE 5 MG TABLET PO SCH ×3 (06:45→18:23)
[2018-11-15] MEDS: LEVOTHYROXINE 75 MCG TABLET PO SCH (06:45)
--- NOTE | 2018-11-15 08:04 | NUR ---
DR SAMANIEGO CALL BACK AND SAID TO CONTINUE WITH DRESSING CHANGES AND ANABIOTIC TREATMENT AND NO BIOPSY NEEDED. HE HAD ROUNDED ON PATIENT ON THE 11/12/18
[2018-11-15] MEDS: Cholecalciferol (Vitamin D3) (Vitamin D3) 1,000 UNIT PO SCH (09:00)
[2018-11-15] MEDS: LEVOFLOXACIN 250 MG/D5W 50ML 50 ML IV SCH (10:00)
[2018-11-15] MEDS: FUROSEMIDE 20 MG TABLET PO SCH ×2 (10:00→21:30)
[2018-11-15] MEDS: SERTRALINE HCL 50 MG TABLET PO SCH (10:01)
[2018-11-15] MEDS: AMLODIPINE BESYLATE 5 MG TAB PO SCH (10:01)
[2018-11-15] MEDS: FAMOTIDINE 20MG TAB 20 MG TAB PO SCH ×2 (10:01→21:30)
[2018-11-15] MEDS: CYANOCOBALAMIN 1000 MCG PO SCH (11:24)
[2018-11-15] MEDS: FERROUS SULFATE 325 MG TABLET.DR PO SCH (11:48)
--- NOTE | 2018-11-15 14:57 | NUR ---
CM Note: [facility] pending ins auth Spoke to Hetal w/Alexandre, submitted updated clinicals to [facility], pt pending ins auth at this time. MOT semi-filled flagged in chart, pending to be completed once approved. EMS filled out flagged in chart, pending to be faxed w/current date, primary nurse to call [facility] once pt ready to DC. Primary nurse aware. CM to cont to follow up.
--- NOTE | 2018-11-15 16:00 | NUR ---
RETURN CALL FROM DR SAMANIEGO , INFORMED THAT DR RIVERO IS STILL ASKING FOR BIOPSY OF GROIN WOUND FOR POSSIBLE OF CA, DR SAMANIEGO SAID IT CAN BE DONE AN OUT PATIENT.
--- NOTE | 2018-11-15 17:00 | NUR ---
NOTE DRESSING TO RIGHT GROIN CHANGED USING CLEAN TECHNIQUE. RAISED AREA TO RIGHT GROIN WITH CLEAR TO RED TINGED DISCHARGE NOTED. 5.4 CM L X1.5 CM W X 0.5 CM H. RECEIVED ORDERS FOR MEDIHONEY WILL START SOON MED IS RECEIVED.
[2018-11-15] MEDS: WARFARIN SODIUM 5 MG TAB PO SCH (18:23)
[2018-11-15] MEDS: Pravastatin Sodium 10 MG PO SCH (21:00)
[2018-11-15] MEDS: HONEY 1 APPL/ML TUBE TP SCH (21:30)
[2018-11-16 03:10] VITALS: BP 132/64
[2018-11-16] MEDS: LEVOTHYROXINE 75 MCG TABLET PO SCH (06:24)
[2018-11-16] MEDS: METOCLOPRAMIDE 5 MG TABLET PO SCH ×2 (06:24→16:31)
[2018-11-16 08:17] VITALS: BP 143/66
[2018-11-16] MEDS: Cholecalciferol (Vitamin D3) (Vitamin D3) 1,000 UNIT PO SCH (09:00)
[2018-11-16] MEDS: FUROSEMIDE 20 MG TABLET PO SCH ×2 (09:08→21:55)
[2018-11-16] MEDS: SERTRALINE HCL 50 MG TABLET PO SCH (09:08)
[2018-11-16] MEDS: FAMOTIDINE 20MG TAB 20 MG TAB PO SCH ×2 (09:08→21:53)
[2018-11-16] MEDS: LEVOFLOXACIN 250 MG/D5W 50ML 50 ML IV SCH (09:08)
[2018-11-16] MEDS: AMLODIPINE BESYLATE 5 MG TAB PO SCH (09:09)
[2018-11-16 11:26] VITALS: BP 131/66
[2018-11-16] MEDS: CYANOCOBALAMIN 1000 MCG PO SCH (12:00)
[2018-11-16] MEDS: FERROUS SULFATE 325 MG TABLET.DR PO SCH (12:00)
--- NOTE | 2018-11-16 14:29 | NUR ---
Nutrition f/u: Pt continues on heart healthy diet with good oral intake. Pt reports no nutritional questions or concerns. As per ALEX Romero, no nutritional questions or concern on his part. LBM 11/16. Recommendations: Continue current diet therapy. Consult RD as nutrition concerns arise. Addendum: 11/16/18 at [address] Amended: Links added.
[2018-11-16] MEDS: WARFARIN SODIUM 5 MG TAB PO SCH (16:31)
[2018-11-16 16:55] VITALS: BP 128/63
[2018-11-16 19:49] VITALS: BP 127/68
[2018-11-16] MEDS: Pravastatin Sodium 10 MG PO SCH (21:00)
[2018-11-16] MEDS: HONEY 1 APPL/ML TUBE TP SCH (21:52)
[2018-11-16 23:51] VITALS: BP 129/76
[2018-11-17 03:58] VITALS: BP 125/69
[2018-11-17 05:07] LABS: BASOPHILS % (AUTO) 0.3 % (0.0-5.0); EOSINOPHILS % (AUTO) 1.8 % (0.0-8.0); HEMATOCRIT 26.5 % (42-54); LYMPHOCYTES % (AUTO) 10.2 % (21.0-51.0); MEAN CORPUSCULAR HGB CONC 32.7 g/dL (32.0-36.0); MEAN CORPUSCULAR VOLUME 94.9 fL (79-99); MONOCYTES % (AUTO) 7.7 % (3.0-13.0); PLATELET COUNT (AUTO) 130 K/uL (130-400); RED BLOOD CELL COUNT(AUTO) 2.79 MIL/uL (4.50-6.20); RED CELL DISTRIBUTION WIDTH 17.3 % (11.0-15.5); WHITE BLOOD COUNT (AUTO) 8.4 K/uL (4.8-10.8)
[2018-11-17 05:10] LABS: CREATININE 1.7 mg/dL (0.5-1.5); INR 1.88 (0.85-1.15); POTASSIUM 4.2 mmol/L (3.5-5.1); PROTHROMBIN TIME 19.5 SEC (9.6-11.6)
[2018-11-17] MEDS: LEVOTHYROXINE 75 MCG TABLET PO SCH (06:12)
[2018-11-17] MEDS: METOCLOPRAMIDE 5 MG TABLET PO SCH ×3 (06:12→17:22)
[2018-11-17 08:34] VITALS: BP 132/75
[2018-11-17] MEDS: Cholecalciferol (Vitamin D3) (Vitamin D3) 1,000 UNIT PO SCH (09:00)
[2018-11-17] MEDS: LEVOFLOXACIN 250 MG/D5W 50ML 50 ML IV SCH (09:02)
[2018-11-17] MEDS: SERTRALINE HCL 50 MG TABLET PO SCH (09:07)
[2018-11-17] MEDS: AMLODIPINE BESYLATE 5 MG TAB PO SCH (09:08)
[2018-11-17] MEDS: FUROSEMIDE 20 MG TABLET PO SCH ×2 (09:08→21:25)
[2018-11-17] MEDS: FAMOTIDINE 20MG TAB 20 MG TAB PO SCH ×2 (09:08→21:15)
[2018-11-17] MEDS: FERROUS SULFATE 325 MG TABLET.DR PO SCH (11:33)
[2018-11-17] MEDS: CYANOCOBALAMIN 1000 MCG PO SCH ×2 (11:34→11:38)
[2018-11-17 11:59] VITALS: BP 124/60
[2018-11-17 16:38] VITALS: BP 112/60
[2018-11-17] MEDS: WARFARIN SODIUM 5 MG TAB PO SCH (17:22)
--- NOTE | 2018-11-17 17:25 | NUR ---
SITTING IN THE CHAIR WATCHING TV SPORT WITH FAMILY. NO COMPLAINT MADE.
[2018-11-17 20:00] VITALS: BP 135/65
[2018-11-17] MEDS: Pravastatin Sodium 10 MG PO SCH (21:00)
[2018-11-17] MEDS: HONEY 1 APPL/ML TUBE TP SCH (21:15)
[2018-11-17 23:48] VITALS: BP 138/74
[2018-11-18 03:48] VITALS: BP 137/72
[2018-11-18] MEDS: METOCLOPRAMIDE 5 MG TABLET PO SCH ×3 (06:33→18:22)
[2018-11-18] MEDS: LEVOTHYROXINE 75 MCG TABLET PO SCH (06:33)
[2018-11-18 08:00] VITALS: BP 128/63
[2018-11-18] MEDS: FAMOTIDINE 20MG TAB 20 MG TAB PO SCH ×2 (09:13→22:44)
[2018-11-18] MEDS: FUROSEMIDE 20 MG TABLET PO SCH ×2 (09:13→22:44)
[2018-11-18] MEDS: AMLODIPINE BESYLATE 5 MG TAB PO SCH (09:13)
[2018-11-18] MEDS: LEVOFLOXACIN 250 MG/D5W 50ML 50 ML IV SCH (09:13)
[2018-11-18] MEDS: SERTRALINE HCL 50 MG TABLET PO SCH (09:13)
[2018-11-18] MEDS: Cholecalciferol (Vitamin D3) (Vitamin D3) 1,000 UNIT PO SCH (09:20)
[2018-11-18 12:00] VITALS: BP 122/86
[2018-11-18] MEDS: CYANOCOBALAMIN 1000 MCG PO SCH (13:16)
[2018-11-18] MEDS: FERROUS SULFATE 325 MG TABLET.DR PO SCH (13:16)
--- NOTE | 2018-11-18 14:52 | NUR ---
CM Note: [facility] pending ins auth Spoke to Hetal Smith, updated clinicals received and forwarded to insurance. Pt pending ins auth at this time. MOT semi-filled flagged in chart pending to be completed. EMS filled out and faxed for today, primary nurse to call [facility] once pt ready to DC. Primary nurse aware. CM to cont to follow up.
[2018-11-18 16:00] VITALS: BP 127/68
[2018-11-18 20:54] VITALS: BP 128/70
[2018-11-18] MEDS: Pravastatin Sodium 10 MG PO SCH (21:00)
[2018-11-18] MEDS: HONEY 1 APPL/ML TUBE TP SCH (21:50)
--- NOTE | 2018-11-18 21:50 | NUR ---
WOUND PT JUST GOT OUT FROM THE BATHROOM AFTER HIS SHOWER. PT TOLERATED ACTIVITY WELL. WOUND DRESSING TO RT GROIN AREA GOT WET. CHANGED DRESSING. WOUND IS PINK IN COLOR, NO DRAINAGE NOR FOUL ODOR AT THIS TIME. CLEANSED WOUND WITH NS, PAT DRY, APPLIED MEDIHONEY THEN COVERED WITH GAUZE AND SECURED WITH TAPE. Addendum: 11/18/18 at 2203 by ERICA CARRILLO RN RN Amended: Links added.
[2018-11-19] VITALS (7 sets, daily range): BP systolic 112–135; BP diastolic 57–71
[2018-11-19 05:10] LABS: MEAN CORPUSCULAR HEMOGLOBIN 31.5 pg (27.0-33.0); MEAN CORPUSCULAR HGB CONC 32.9 g/dL (32.0-36.0); MEAN CORPUSCULAR VOLUME 95.7 fL (79-99); PLATELET COUNT (AUTO) 114 K/uL (130-400); RED BLOOD CELL COUNT(AUTO) 2.72 MIL/uL (4.50-6.20); RED CELL DISTRIBUTION WIDTH 16.9 % (11.0-15.5); WHITE BLOOD COUNT (AUTO) 7.7 K/uL (4.8-10.8)
[2018-11-19 05:28] LABS: CREATININE 1.6 mg/dL (0.5-1.5); POTASSIUM 4.2 mmol/L (3.5-5.1)
[2018-11-19] MEDS: METOCLOPRAMIDE 5 MG TABLET PO SCH ×3 (06:33→17:05)
[2018-11-19] MEDS: LEVOTHYROXINE 75 MCG TABLET PO SCH (06:33)
[2018-11-19] MEDS: AMLODIPINE BESYLATE 5 MG TAB PO SCH (09:08)
[2018-11-19] MEDS: FAMOTIDINE 20MG TAB 20 MG TAB PO SCH ×2 (09:08→21:14)
[2018-11-19] MEDS: FUROSEMIDE 20 MG TABLET PO SCH ×2 (09:08→21:14)
[2018-11-19] MEDS: SERTRALINE HCL 50 MG TABLET PO SCH (09:08)
[2018-11-19] MEDS: LEVOFLOXACIN 250 MG/D5W 50ML 50 ML IV SCH (09:08)
[2018-11-19] MEDS: Cholecalciferol (Vitamin D3) (Vitamin D3) 1,000 UNIT PO SCH (09:10)
[2018-11-19] MEDS: FERROUS SULFATE 325 MG TABLET.DR PO SCH (12:57)
[2018-11-19] MEDS: CYANOCOBALAMIN 1000 MCG PO SCH (12:58)
[2018-11-19] MEDS: Pravastatin Sodium 10 MG PO SCH (21:00)
--- NOTE | 2018-11-19 21:11 | NUR ---
DRESSING CHANGE WOUND PINK. NO FOUL ODOR, NO DRAINAGE NOTED. CLEANED WITH SALINE, PAT DRIED WITH GAUZE. MEDIHONEY APPLIED, COVERED WITH GAUZE. PATIENT TOLERATED WELL. BED LOCKED IN LOWEST POSITION, CALL LIGHT WITHIN REACH.
[2018-11-19] MEDS: HONEY 1 APPL/ML TUBE TP SCH (21:15)
[2018-11-20 04:00] VITALS: BP 129/56
[2018-11-20] MEDS: LEVOTHYROXINE 75 MCG TABLET PO SCH (05:57)
[2018-11-20] MEDS: METOCLOPRAMIDE 5 MG TABLET PO SCH ×3 (06:47→17:25)
[2018-11-20 08:02] VITALS: BP 132/66
[2018-11-20] MEDS: Cholecalciferol (Vitamin D3) (Vitamin D3) 1,000 UNIT PO SCH (09:00)
[2018-11-20] MEDS: SERTRALINE HCL 50 MG TABLET PO SCH (09:45)
[2018-11-20] MEDS: AMLODIPINE BESYLATE 5 MG TAB PO SCH (09:45)
[2018-11-20] MEDS: FUROSEMIDE 20 MG TABLET PO SCH ×2 (09:45→21:10)
[2018-11-20] MEDS: FAMOTIDINE 20MG TAB 20 MG TAB PO SCH ×2 (09:45→21:10)
[2018-11-20] MEDS: LEVOFLOXACIN 250 MG/D5W 50ML 50 ML IV SCH (09:51)
[2018-11-20 11:38] VITALS: BP 124/72
[2018-11-20] MEDS: CYANOCOBALAMIN 1000 MCG PO SCH (12:00)
[2018-11-20] MEDS: FERROUS SULFATE 325 MG TABLET.DR PO SCH (12:20)
--- NOTE | 2018-11-20 12:41 | NUR ---
CM Note: [facility] pending acceptance CM spoke to Hetal alanis/Alexandre, received denial from [facility], pt now would like to use Medicare [employer] instead. As per Hetal checking benefits at this time, pt pending acceptance. MOT flagged pending to be completed, EMS arranged and faxed for today. Plan B SNF vs home. Primary nurse aware. CM to cont to follow up.
--- NOTE | 2018-11-20 13:37 | NUR ---
CM Note: [facility] acceptance Spoke to Hetal Smith, pt has acceptance. MOT filled out. EMS arranged and faxed. Primary nurse aware. CM to cont to follow up.
[2018-11-20 16:11] VITALS: BP 112/53
--- NOTE | 2018-11-20 19:34 | NUR ---
DISCHARGE INSTRUCTIONS GIVEN TO PATIENT FAMILY MEMBER. ALL QUESTIONS ANSWERED. PATIENT TO TRANSFER TO [facility]. Addendum: 11/20/18 at 1939 by JOHAN EAST LVN REPORT CALLED TO LAYLA AT [facility] .
[2018-11-20 20:00] VITALS: BP 124/64
[2018-11-20] MEDS: HONEY 1 APPL/ML TUBE TP SCH (20:00)
[2018-11-20] MEDS: Pravastatin Sodium 10 MG PO SCH (21:00)
--- NOTE | 2018-11-21 00:45 | NUR ---
DISCHARGE PATIENT DISCHARGED TO [facility]. TRANSFERRED VIA EMS. DISCHARGE PACKET GIVEN TO EMS. IV REMOVED DURING DAY SHIFT.
== END 2018-11-21 00:45 | DRG 919 ==
LOC: EDH 14:30 → EDHIP 18:35 → 3BH 19:44
PROVIDERS: ADMIT Internal Medicine; ATTEND Internal Medicine
DX: T81.30XA Disruption of wound, unspecified, initial encounter (principal); A41.52 Sepsis due to Pseudomonas; D68.59 Other primary thrombophilia; E44.1 Mild protein-calorie malnutrition; I50.32 Chronic diastolic (congestive) heart failure; I13.0 Hypertensive heart and chronic kidney disease with heart failure and stage 1 through stage 4 chronic kidney disease, or unspecified chronic kidney disease; N17.9 Acute kidney failure, unspecified; L03.90 Cellulitis, unspecified; Z68.1 Body mass index [BMI] 19.9 or less, adult; S30.1XXA Contusion of abdominal wall, initial encounter; N18.3 Chronic kidney disease, stage 3 (moderate); E11.22 Type 2 diabetes mellitus with diabetic chronic kidney disease; I48.91 Unspecified atrial fibrillation; E11.51 Type 2 diabetes mellitus with diabetic peripheral angiopathy without gangrene; I25.10 Atherosclerotic heart disease of native coronary artery without angina pectoris; D50.9 Iron deficiency anemia, unspecified; D69.59 Other secondary thrombocytopenia; E03.9 Hypothyroidism, unspecified; E78.5 Hyperlipidemia, unspecified; F32.9 Major depressive disorder, single episode, unspecified; I27.20 Pulmonary hypertension, unspecified; I35.0 Nonrheumatic aortic (valve) stenosis; S31.103A Unspecified open wound of abdominal wall, right lower quadrant without penetration into peritoneal cavity, initial encounter; K80.20 Calculus of gallbladder without cholecystitis without obstruction; R62.7 Adult failure to thrive; T45.515A Adverse effect of anticoagulants, initial encounter; Z79.01 Long term (current) use of anticoagulants; Z95.1 Presence of aortocoronary bypass graft; Z95.2 Presence of prosthetic heart valve; Z95.5 Presence of coronary angioplasty implant and graft; Z87.01 Personal history of pneumonia (recurrent); Z83.3 Family history of diabetes mellitus; B95.2 Enterococcus as the cause of diseases classified elsewhere; X58.XXXA Exposure to other specified factors, initial encounter; Y93.89 Activity, other specified; Y92.89 Other specified places as the place of occurrence of the external cause; Y99.8 Other external cause status
CPT/HCPCS: 36415; 71045; 71250; 74176; 80048; 80053; 81001; 82550; 82948; 83605; 83735; 83874; 83880; 84484; 85025; 85027; 85610; 85651; 85730; 86140; 87040; 87070; 87076; 87077; 87186; 93005; 99291; G0378; J1956

== ENCOUNTER 2019-02-11 16:00 | Inpatient (IN) | payer OTHER | END 2019-02-14 11:50 | disposition home or self-care (01) | LOC: EDH 16:00 → EDHIP 18:45 → 3DH 23:05 | DX: I50.9 Heart failure, unspecified (principal); L02.611 Cutaneous abscess of right foot; J90 Pleural effusion, not elsewhere classified; L03.115 Cellulitis of right lower limb; Z68.1 Body mass index [BMI] 19.9 or less, adult; D64.9 Anemia, unspecified; R63.4 Abnormal weight loss ==

== ENCOUNTER → 2019-02-19 | Outpatient (CLI) | payer MEDICARE ==
[~2019-02-19] MED LIST changes: +CLIN300C9 PO; -DOXY100T2 PO; +LATA7.5D OU; -LEVO50 PO; +LEVO75 PO; +LIDOCAINE HCL 2% JELLY 5 ML TP ONE; -OSEL75 PO; +POTA20TA82 PO; +WARF7.5T49 PO
[2019-02-19 11:20] VITALS: BP 114/58
== END | disposition home or self-care (01) ==
LOC: WHH 09:00
PROVIDERS: ATTEND Podiatrist Foot & Ankle Surgery
DX: T81.89XA Other complications of procedures, not elsewhere classified, initial encounter (principal); E11.621 Type 2 diabetes mellitus with foot ulcer; L97.511 Non-pressure chronic ulcer of other part of right foot limited to breakdown of skin; E11.51 Type 2 diabetes mellitus with diabetic peripheral angiopathy without gangrene; I25.10 Atherosclerotic heart disease of native coronary artery without angina pectoris; I11.0 Hypertensive heart disease with heart failure; I50.9 Heart failure, unspecified; F32.9 Major depressive disorder, single episode, unspecified; E78.5 Hyperlipidemia, unspecified; Z95.2 Presence of prosthetic heart valve; Z95.5 Presence of coronary angioplasty implant and graft; Z79.01 Long term (current) use of anticoagulants; Y83.8 Other surgical procedures as the cause of abnormal reaction of the patient, or of later complication, without mention of misadventure at the time of the procedure; Y92.89 Other specified places as the place of occurrence of the external cause
CPT/HCPCS: A4450; G0463; L3260

== ENCOUNTER → 2019-03-05 | Outpatient (CLI) | payer MEDICARE ==
[~2019-03-05] MED LIST changes: +HONEY 1 APPL/ML TUBE TP ONE; -LIDOCAINE HCL 2% JELLY 5 ML TP ONE; +LIDOCAINE/PRILOCAINE CREAM 5GM TUBE TP ONE
[2019-03-05 11:34] VITALS: BP 107/50
== END | disposition home or self-care (01) ==
LOC: WHH 09:00
PROVIDERS: ATTEND Podiatrist Foot & Ankle Surgery
DX: E11.621 Type 2 diabetes mellitus with foot ulcer (principal); L97.511 Non-pressure chronic ulcer of other part of right foot limited to breakdown of skin; E11.51 Type 2 diabetes mellitus with diabetic peripheral angiopathy without gangrene; I25.10 Atherosclerotic heart disease of native coronary artery without angina pectoris; I11.0 Hypertensive heart disease with heart failure; I50.9 Heart failure, unspecified; F32.9 Major depressive disorder, single episode, unspecified; E78.5 Hyperlipidemia, unspecified; Z95.2 Presence of prosthetic heart valve; Z95.5 Presence of coronary angioplasty implant and graft; Z79.01 Long term (current) use of anticoagulants
CPT/HCPCS: 11042; A6209; J3490

== ENCOUNTER → 2019-03-19 | Outpatient (CLI) | payer MEDICARE ==
[~2019-03-19] MED LIST changes: -HONEY 1 APPL/ML TUBE TP ONE; -LIDOCAINE/PRILOCAINE CREAM 5GM TUBE TP ONE
[2019-03-19 13:17] VITALS: BP 118/63
== END | disposition home or self-care (01) ==
LOC: WHH 09:00
PROVIDERS: ATTEND Podiatrist Foot & Ankle Surgery
DX: E11.621 Type 2 diabetes mellitus with foot ulcer (principal); I70.235 Atherosclerosis of native arteries of right leg with ulceration of other part of foot; L97.512 Non-pressure chronic ulcer of other part of right foot with fat layer exposed; E11.51 Type 2 diabetes mellitus with diabetic peripheral angiopathy without gangrene; I11.0 Hypertensive heart disease with heart failure; I50.9 Heart failure, unspecified; I25.10 Atherosclerotic heart disease of native coronary artery without angina pectoris; E78.5 Hyperlipidemia, unspecified; M85.80 Other specified disorders of bone density and structure, unspecified site; F32.9 Major depressive disorder, single episode, unspecified; Z79.01 Long term (current) use of anticoagulants; Z95.5 Presence of coronary angioplasty implant and graft; Z95.2 Presence of prosthetic heart valve
CPT/HCPCS: 11042; A4450; A6209

== ENCOUNTER → 2019-03-26 | Outpatient (CLI) | payer MEDICARE ==
[~2019-03-26] MED LIST changes: +LIDOCAINE/PRILOCAINE CREAM 5GM TUBE TP ONE
[2019-03-26 13:34] VITALS: BP 118/58
== END | disposition home or self-care (01) ==
LOC: WHH 08:55
PROVIDERS: ATTEND Podiatrist Foot & Ankle Surgery
DX: E11.621 Type 2 diabetes mellitus with foot ulcer (principal); L97.511 Non-pressure chronic ulcer of other part of right foot limited to breakdown of skin; E11.51 Type 2 diabetes mellitus with diabetic peripheral angiopathy without gangrene; I11.0 Hypertensive heart disease with heart failure; I50.9 Heart failure, unspecified; I25.10 Atherosclerotic heart disease of native coronary artery without angina pectoris; E78.5 Hyperlipidemia, unspecified; F32.9 Major depressive disorder, single episode, unspecified; Z79.01 Long term (current) use of anticoagulants; Z95.5 Presence of coronary angioplasty implant and graft; Z95.2 Presence of prosthetic heart valve; M85.80 Other specified disorders of bone density and structure, unspecified site
CPT/HCPCS: 15275; A6209; J3490; Q4133

== ENCOUNTER → 2019-04-02 | Outpatient (CLI) | payer MEDICARE ==
[~2019-04-02] MED LIST changes: -LIDOCAINE/PRILOCAINE CREAM 5GM TUBE TP ONE
[2019-04-02 13:07] VITALS: BP 128/62
== END | disposition home or self-care (01) ==
LOC: WHH 08:45
PROVIDERS: ATTEND Podiatrist Foot & Ankle Surgery
DX: E11.621 Type 2 diabetes mellitus with foot ulcer (principal); L97.511 Non-pressure chronic ulcer of other part of right foot limited to breakdown of skin; I70.235 Atherosclerosis of native arteries of right leg with ulceration of other part of foot; E11.51 Type 2 diabetes mellitus with diabetic peripheral angiopathy without gangrene; I11.9 Hypertensive heart disease without heart failure; I50.9 Heart failure, unspecified; I87.8 Other specified disorders of veins; I25.10 Atherosclerotic heart disease of native coronary artery without angina pectoris; E78.5 Hyperlipidemia, unspecified; M85.80 Other specified disorders of bone density and structure, unspecified site; F32.9 Major depressive disorder, single episode, unspecified; Z79.01 Long term (current) use of anticoagulants; Z95.5 Presence of coronary angioplasty implant and graft; Z95.2 Presence of prosthetic heart valve
CPT/HCPCS: 15275; A6209; Q4133

== ENCOUNTER → 2019-04-09 | Outpatient (CLI) | payer MEDICARE ==
[2019-04-09 13:44] VITALS: BP 111/57
== END | disposition home or self-care (01) ==
LOC: WHH 08:45
PROVIDERS: ATTEND Podiatrist Foot & Ankle Surgery
DX: E11.621 Type 2 diabetes mellitus with foot ulcer (principal); I70.235 Atherosclerosis of native arteries of right leg with ulceration of other part of foot; L97.511 Non-pressure chronic ulcer of other part of right foot limited to breakdown of skin; E11.51 Type 2 diabetes mellitus with diabetic peripheral angiopathy without gangrene; I11.0 Hypertensive heart disease with heart failure; I50.9 Heart failure, unspecified; I87.8 Other specified disorders of veins; E78.5 Hyperlipidemia, unspecified; I25.10 Atherosclerotic heart disease of native coronary artery without angina pectoris; M85.9 Disorder of bone density and structure, unspecified; F32.9 Major depressive disorder, single episode, unspecified; Z95.1 Presence of aortocoronary bypass graft; Z95.2 Presence of prosthetic heart valve; Z79.01 Long term (current) use of anticoagulants
CPT/HCPCS: 15275; A6209; Q4133

== ENCOUNTER → 2019-04-16 | Outpatient (CLI) | payer MEDICARE ==
[2019-04-16 11:42] VITALS: BP 118/65
== END | disposition home or self-care (01) ==
LOC: WHH 09:45
PROVIDERS: ATTEND Podiatrist Foot & Ankle Surgery
DX: E11.621 Type 2 diabetes mellitus with foot ulcer (principal); L97.511 Non-pressure chronic ulcer of other part of right foot limited to breakdown of skin; I70.235 Atherosclerosis of native arteries of right leg with ulceration of other part of foot; E11.51 Type 2 diabetes mellitus with diabetic peripheral angiopathy without gangrene; I11.0 Hypertensive heart disease with heart failure; I50.9 Heart failure, unspecified; I25.10 Atherosclerotic heart disease of native coronary artery without angina pectoris; E78.5 Hyperlipidemia, unspecified; I87.8 Other specified disorders of veins; M85.80 Other specified disorders of bone density and structure, unspecified site; F32.9 Major depressive disorder, single episode, unspecified; Z95.1 Presence of aortocoronary bypass graft; Z95.2 Presence of prosthetic heart valve; Z79.01 Long term (current) use of anticoagulants
CPT/HCPCS: 15275; A6209; Q4133

== ENCOUNTER → 2019-04-23 | Outpatient (CLI) | payer MEDICARE ==
[2019-04-23 11:12] VITALS: BP 121/64
== END | disposition home or self-care (01) ==
LOC: WHH 10:00
PROVIDERS: ATTEND Podiatrist Foot & Ankle Surgery
DX: E11.621 Type 2 diabetes mellitus with foot ulcer (principal); L97.511 Non-pressure chronic ulcer of other part of right foot limited to breakdown of skin; I70.235 Atherosclerosis of native arteries of right leg with ulceration of other part of foot; E11.51 Type 2 diabetes mellitus with diabetic peripheral angiopathy without gangrene; I11.0 Hypertensive heart disease with heart failure; I50.9 Heart failure, unspecified; I87.8 Other specified disorders of veins; I25.10 Atherosclerotic heart disease of native coronary artery without angina pectoris; E78.5 Hyperlipidemia, unspecified; M85.80 Other specified disorders of bone density and structure, unspecified site; F32.9 Major depressive disorder, single episode, unspecified; Z95.5 Presence of coronary angioplasty implant and graft; Z95.1 Presence of aortocoronary bypass graft; Z95.2 Presence of prosthetic heart valve; Z79.01 Long term (current) use of anticoagulants
CPT/HCPCS: 15275; A6021; Q4133

== ENCOUNTER → 2019-04-30 | Outpatient (CLI) | payer MEDICARE ==
--- NOTE | 2019-04-30 10:25 | NUR ---
Pt reports being shob today. Lungs sounds clear. Uses O2 at home however does not have portable tank for trips outside the home. O2 Sat 79-80%. No signs of respiratory distress. Dr. Coley made aware of pt's status. O2 at 2 l/m applied using [facility]'s portable O2 tank. Repeat O2 sat at 100%. Addendum: 04/30/19 at 1342 by IZAIAH LEVI RN [facility] Amended: Links added.
[2019-04-30 13:37] VITALS: BP 123/65
== END | disposition home or self-care (01) ==
LOC: WHH 10:15
PROVIDERS: ATTEND Podiatrist Foot & Ankle Surgery
DX: E11.621 Type 2 diabetes mellitus with foot ulcer (principal); L97.511 Non-pressure chronic ulcer of other part of right foot limited to breakdown of skin; I70.235 Atherosclerosis of native arteries of right leg with ulceration of other part of foot; E11.51 Type 2 diabetes mellitus with diabetic peripheral angiopathy without gangrene; F32.9 Major depressive disorder, single episode, unspecified; I25.10 Atherosclerotic heart disease of native coronary artery without angina pectoris; I50.9 Heart failure, unspecified; E78.5 Hyperlipidemia, unspecified; I11.0 Hypertensive heart disease with heart failure; I87.8 Other specified disorders of veins; M85.9 Disorder of bone density and structure, unspecified; Z95.1 Presence of aortocoronary bypass graft; Z95.2 Presence of prosthetic heart valve; Z79.01 Long term (current) use of anticoagulants
CPT/HCPCS: 15275; A6021; Q4133

== ENCOUNTER → 2019-05-07 | Outpatient (CLI) | payer MEDICARE ==
[2019-05-07 14:27] VITALS: BP 146/74
== END | disposition home or self-care (01) ==
LOC: WHH 10:00
PROVIDERS: ATTEND Podiatrist Foot & Ankle Surgery
DX: E11.621 Type 2 diabetes mellitus with foot ulcer (principal); L97.511 Non-pressure chronic ulcer of other part of right foot limited to breakdown of skin; I70.235 Atherosclerosis of native arteries of right leg with ulceration of other part of foot; E11.51 Type 2 diabetes mellitus with diabetic peripheral angiopathy without gangrene; I11.0 Hypertensive heart disease with heart failure; I50.9 Heart failure, unspecified; I25.10 Atherosclerotic heart disease of native coronary artery without angina pectoris; I87.8 Other specified disorders of veins; E78.5 Hyperlipidemia, unspecified; M85.9 Disorder of bone density and structure, unspecified; F32.9 Major depressive disorder, single episode, unspecified; Z95.1 Presence of aortocoronary bypass graft; Z95.2 Presence of prosthetic heart valve; Z79.01 Long term (current) use of anticoagulants; Z95.5 Presence of coronary angioplasty implant and graft
CPT/HCPCS: 15275; A6021; Q4133

== ENCOUNTER → 2019-05-14 | Outpatient (CLI) | payer MEDICARE ==
[2019-05-14 11:29] VITALS: BP 110/66
== END | disposition home or self-care (01) ==
LOC: WHH 09:40
PROVIDERS: ATTEND Podiatrist Foot & Ankle Surgery
DX: E11.621 Type 2 diabetes mellitus with foot ulcer (principal); L97.511 Non-pressure chronic ulcer of other part of right foot limited to breakdown of skin; I70.235 Atherosclerosis of native arteries of right leg with ulceration of other part of foot; E11.51 Type 2 diabetes mellitus with diabetic peripheral angiopathy without gangrene; I11.0 Hypertensive heart disease with heart failure; I50.9 Heart failure, unspecified; I25.10 Atherosclerotic heart disease of native coronary artery without angina pectoris; I87.8 Other specified disorders of veins; E78.5 Hyperlipidemia, unspecified; M85.9 Disorder of bone density and structure, unspecified; F32.9 Major depressive disorder, single episode, unspecified; Z95.1 Presence of aortocoronary bypass graft; Z95.2 Presence of prosthetic heart valve; Z79.01 Long term (current) use of anticoagulants; Z95.5 Presence of coronary angioplasty implant and graft
CPT/HCPCS: G0463

== ENCOUNTER → 2019-05-21 | Outpatient (CLI) | payer MEDICARE ==
[~2019-05-21] MED LIST changes: +LIDOCAINE/PRILOCAINE CREAM 5GM TUBE TP ONE
[2019-05-21 13:38] VITALS: BP 120/62
== END | disposition home or self-care (01) ==
LOC: WHH 09:45
PROVIDERS: ATTEND Podiatrist Foot & Ankle Surgery
DX: E11.621 Type 2 diabetes mellitus with foot ulcer (principal); L97.511 Non-pressure chronic ulcer of other part of right foot limited to breakdown of skin; I70.235 Atherosclerosis of native arteries of right leg with ulceration of other part of foot; E11.51 Type 2 diabetes mellitus with diabetic peripheral angiopathy without gangrene; I11.0 Hypertensive heart disease with heart failure; I50.9 Heart failure, unspecified; I25.10 Atherosclerotic heart disease of native coronary artery without angina pectoris; I87.8 Other specified disorders of veins; E78.5 Hyperlipidemia, unspecified; M85.9 Disorder of bone density and structure, unspecified; F32.9 Major depressive disorder, single episode, unspecified; Z95.1 Presence of aortocoronary bypass graft; Z95.2 Presence of prosthetic heart valve; Z79.01 Long term (current) use of anticoagulants; Z95.5 Presence of coronary angioplasty implant and graft
CPT/HCPCS: 15275; A6207; J3490; Q4133

== ENCOUNTER → 2019-05-28 | Outpatient (CLI) | payer MEDICARE ==
[~2019-05-28] MED LIST changes: -LIDOCAINE/PRILOCAINE CREAM 5GM TUBE TP ONE
[2019-05-28 14:03] VITALS: BP 136/73
== END | disposition home or self-care (01) ==
LOC: WHH 10:00
PROVIDERS: ATTEND Podiatrist Foot & Ankle Surgery
DX: T86.828 Other complications of skin graft (allograft) (autograft) (principal); E11.621 Type 2 diabetes mellitus with foot ulcer; I70.235 Atherosclerosis of native arteries of right leg with ulceration of other part of foot; L97.511 Non-pressure chronic ulcer of other part of right foot limited to breakdown of skin; E11.51 Type 2 diabetes mellitus with diabetic peripheral angiopathy without gangrene; I11.0 Hypertensive heart disease with heart failure; I50.9 Heart failure, unspecified; I25.10 Atherosclerotic heart disease of native coronary artery without angina pectoris; I87.8 Other specified disorders of veins; E78.5 Hyperlipidemia, unspecified; F32.9 Major depressive disorder, single episode, unspecified; M85.9 Disorder of bone density and structure, unspecified; Z95.5 Presence of coronary angioplasty implant and graft; Z95.1 Presence of aortocoronary bypass graft; Z95.2 Presence of prosthetic heart valve; Y83.2 Surgical operation with anastomosis, bypass or graft as the cause of abnormal reaction of the patient, or of later complication, without mention of misadventure at the time of the procedure
CPT/HCPCS: 15275; A6207; Q4133

== ENCOUNTER → 2019-06-04 | Outpatient (CLI) | payer MEDICARE ==
[2019-06-04 13:36] VITALS: BP 117/50
== END | disposition home or self-care (01) ==
LOC: WHH 10:00
PROVIDERS: ATTEND Podiatrist Foot & Ankle Surgery
DX: T86.828 Other complications of skin graft (allograft) (autograft) (principal); E11.621 Type 2 diabetes mellitus with foot ulcer; I70.235 Atherosclerosis of native arteries of right leg with ulceration of other part of foot; L97.511 Non-pressure chronic ulcer of other part of right foot limited to breakdown of skin; E11.51 Type 2 diabetes mellitus with diabetic peripheral angiopathy without gangrene; I11.0 Hypertensive heart disease with heart failure; I50.9 Heart failure, unspecified; I25.10 Atherosclerotic heart disease of native coronary artery without angina pectoris; I87.8 Other specified disorders of veins; E78.5 Hyperlipidemia, unspecified; F32.9 Major depressive disorder, single episode, unspecified; M85.9 Disorder of bone density and structure, unspecified; Z95.5 Presence of coronary angioplasty implant and graft; Z95.1 Presence of aortocoronary bypass graft; Z95.2 Presence of prosthetic heart valve; Y83.2 Surgical operation with anastomosis, bypass or graft as the cause of abnormal reaction of the patient, or of later complication, without mention of misadventure at the time of the procedure
CPT/HCPCS: 15275; A6207; Q4133

== ENCOUNTER → 2019-06-11 | Outpatient (CLI) | payer MEDICARE ==
[2019-06-11 12:10] VITALS: BP 119/55
== END | disposition home or self-care (01) ==
LOC: WHH 10:00
PROVIDERS: ATTEND Podiatrist Foot & Ankle Surgery
DX: T86.828 Other complications of skin graft (allograft) (autograft) (principal); E11.621 Type 2 diabetes mellitus with foot ulcer; I70.235 Atherosclerosis of native arteries of right leg with ulceration of other part of foot; L97.511 Non-pressure chronic ulcer of other part of right foot limited to breakdown of skin; E11.51 Type 2 diabetes mellitus with diabetic peripheral angiopathy without gangrene; I11.0 Hypertensive heart disease with heart failure; I50.9 Heart failure, unspecified; I25.10 Atherosclerotic heart disease of native coronary artery without angina pectoris; I87.8 Other specified disorders of veins; E78.5 Hyperlipidemia, unspecified; F32.9 Major depressive disorder, single episode, unspecified; M85.9 Disorder of bone density and structure, unspecified; Z95.5 Presence of coronary angioplasty implant and graft; Z95.1 Presence of aortocoronary bypass graft; Z95.2 Presence of prosthetic heart valve; Y83.2 Surgical operation with anastomosis, bypass or graft as the cause of abnormal reaction of the patient, or of later complication, without mention of misadventure at the time of the procedure
CPT/HCPCS: A6207; G0463

== ENCOUNTER → 2019-06-18 | Outpatient (CLI) | payer MEDICARE ==
[2019-06-18 13:51] VITALS: BP 115/60
== END | disposition home or self-care (01) ==
LOC: WHH 10:00
PROVIDERS: ATTEND Podiatrist Foot & Ankle Surgery
DX: T86.828 Other complications of skin graft (allograft) (autograft) (principal); E11.621 Type 2 diabetes mellitus with foot ulcer; I70.235 Atherosclerosis of native arteries of right leg with ulceration of other part of foot; L97.511 Non-pressure chronic ulcer of other part of right foot limited to breakdown of skin; E11.51 Type 2 diabetes mellitus with diabetic peripheral angiopathy without gangrene; I11.0 Hypertensive heart disease with heart failure; I50.9 Heart failure, unspecified; I25.10 Atherosclerotic heart disease of native coronary artery without angina pectoris; I87.8 Other specified disorders of veins; E78.5 Hyperlipidemia, unspecified; F32.9 Major depressive disorder, single episode, unspecified; M85.9 Disorder of bone density and structure, unspecified; Z95.5 Presence of coronary angioplasty implant and graft; Z95.1 Presence of aortocoronary bypass graft; Z95.2 Presence of prosthetic heart valve; Y83.2 Surgical operation with anastomosis, bypass or graft as the cause of abnormal reaction of the patient, or of later complication, without mention of misadventure at the time of the procedure
CPT/HCPCS: A6207; G0463